=== PATIENT | male | born 1980 | race Caucasian/White ===

== ENCOUNTER 2016-12-12 15:29 | Inpatient (IN) | payer OTHER ==
[~2016-12-12] VITALS: Ht 175.3 cm; Wt 108.4 kg
[2016-12-12 15:41] VITALS: BP 139/108
--- NOTE | 2016-12-12 17:33 | NUR ---
DR. MASON AT BEDSIDE.
--- NOTE | 2016-12-12 17:33 | NUR ---
Dr. Mcdonald evaluating patient at bedside.
--- NOTE | 2016-12-12 17:35 | NUR ---
PATIENT PRESENTS TO ED WITH BACK PAIN X1 WEEK. DENIES TRAUMA, DENIES N/V/D; SKIN IS PINK/WARM/DRY; AAOX4 WITH EVEN AND STEADY GAIT; LUNGS CLEAR BL; HR EVEN AND REGULAR; PT DENIES ANY FEVER, CP, SOB, OR COUGH AT THIS TIME; PATIENT STATES PAIN OF 7/10 AT THIS TIME; VSS; PATIENT POSITIONED FOR COMFORT; HOB ELEVATED; BEDRAILS UP X2; BED DOWN. ER MD MADE AWARE OF PT STATUS.
[2016-12-12] MEDS ORDERED: MORPHINE SULFATE 4 MG/ML SYR IVP ONE ×2 (17:45→20:35)
[2016-12-12] MEDS ORDERED: NACL 0.9% 1,000 ML IV ONE (17:45)
[2016-12-12] MEDS ORDERED: LORazepam 2 MG/ML VIAL IVP ONE (17:45)
--- NOTE | 2016-12-12 17:56 | NUR ---
EKG completed at bedside by EMT.
--- NOTE | 2016-12-12 18:06 | NUR ---
technical inspector at bedside.
--- NOTE | 2016-12-12 18:45 | NUR ---
PT STABLE, DENIES ANY PAIN AT THIS MOMENT
[2016-12-12] MEDS ORDERED: cefTRIAXone 2,000 MG in DEXTROSE 5% 100 ML IV ONE (18:55)
[2016-12-12] MEDS ORDERED: VANCOMYCIN 1,000 MG in DEXTROSE 5% 250 ML IV ONE (18:55)
--- NOTE | 2016-12-12 19:15 | NUR ---
REPORT RECEIVED FROM ZOIE MCDONALD.
--- NOTE | 2016-12-12 19:15 | NUR ---
REPORT GIVEN TO ZOIE BE.
[2016-12-12] MEDS ORDERED: VANCOMYCIN 1,000 MG VIAL ONE (19:19)
[2016-12-12] MEDS ORDERED: cefTRIAXone 2,000 MG VIAL ONE (19:19)
[2016-12-12] MEDS ORDERED: NACL 0.9% 3,000 ML IV ONE (19:25)
--- NOTE | 2016-12-12 19:40 | NUR ---
PT TO CT VIA CHRISTIE IN STABLE CONDITION
[2016-12-12] MEDS ORDERED: ONDANSETRON 4 MG/2 ML VIAL IVP ONE (20:35)
[2016-12-12] MEDS ORDERED: ONDANSETRON 4 MG/2 ML VIAL IVP PRN (21:50)
[2016-12-12] MEDS ORDERED: ACETAMINOPHEN 325 MG TAB PO PRN (21:50)
[2016-12-12] MEDS ORDERED: LORazepam 2 MG/ML VIAL IVP PRN (21:50)
--- NOTE | 2016-12-12 22:01 | NUR ---
Note cara in EDM - 12/12/16 at 2205 by LASHONDA Patient discharged with v/s stable. Written and verbal after care instructions given and explained. Patient alert, oriented and verbalized understanding of instructions. Ambulatory with steady gait. All questions addressed prior to discharge. ID band removed. Patient advised to follow up with PMD. Rx of METRONIDDAZOLE 0.75% BID given. Patient educated on indication of medication including possible reaction and side effects. Opportunity to ask questions provided and answered.
--- NOTE | 2016-12-12 22:12 | NUR ---
NEW PIV STARTED. PT CATHY. WELL
--- NOTE | 2016-12-12 22:16 | NUR ---
MD AT BEDSIDE TALKING WITH PT REGARDING ADMIT
[2016-12-12 22:40] VITALS: BP 134/80
[2016-12-12] MEDS: LEVOFLOXACIN 750 MG/D5W PREMIX 150 ML IV SCH (22:40)
[2016-12-12] MEDS: NACL 0.9% 1,000 ML IV SCH (22:40)
--- NOTE | 2016-12-12 22:40 | NUR ---
PATIENT TRANSFERRED FROM ED VIA WHEELCHAIR. PATIENT ABLE TO AMBULATE FROM WHEELCHAIR TO BED WITH STEADY GAIT. NO RESPIRATORY DISTRESS, SOB, OR DISCOMFORT. PATIENT IS A 36-YEAR-OLD, MALE, DIAGNOSIS: PYELONEPHRITIS. INITIAL ASSESSMENT AND BODY CHECK DONE. PATIENT IS AOX4, SKIN IS INTACT, IV ACCESS TO RIGHT WRIST 20G, PATENT. PATIENT DENIES ANY PAIN AT THIS TIME. PATIENT HAS F/C IN PLACE DRAINING CLEAR, NANY. DISCUSSED PLAN OF CARE, MEDICATION REGIMENT, AND PAIN MANAGEMENT WITH PATIENT. PATIENT VERBALIZED UNDERSTANDING. PLACED PATIENT ON SAFETY PRECAUTIONS. CALL LIGHT LEFT WITHIN REACH, WILL CONTINUE TO MONITOR.
--- NOTE | 2016-12-12 22:41 | NUR ---
Patient will be admitted to care of DR FRAIRE. Admited to TELE. Will go to room 112B. Belongings list completed. Report to
[2016-12-12] MEDS ORDERED: INFLUENZA VIRUS VACCINE QUAD 0.5 ML SYR IMVAC PRN (23:55)
[2016-12-12] MEDS ORDERED: PNEUMOCOCCAL VACCINE 23 MCG/0.5 ML VIAL IMVAC PRN (23:55)
[2016-12-13] VITALS: BP 130/78
--- NOTE | 2016-12-13 00:52 | NUR ---
PATIENT IN BED, SLEEPING. NO RESPIRATORY DISTRESS, SOB, OR DISCOMFORT. CALL LIGHT LEFT WITHIN REACH, WILL CONTINUE TO MONITOR.
--- NOTE | 2016-12-13 03:13 | NUR ---
PATIENT ASLEEP. NO RESPIRATORY DISTRESS, SOB, OR DISCOMFORT. CALL LIGHT LEFT WITHIN REACH, WILL CONTINUE TO MONITOR.
--- NOTE | 2016-12-13 06:05 | NUR ---
PATIENT SLEEPING. NO RESPIRATORY DISTRESS, SOB, OR DISCOMFORT. CALL LIGHT LEFT WITHIN REACH, WILL CONTINUE TO MONITOR.
--- NOTE | 2016-12-13 07:21 | NUR ---
REPORT GIVEN TO DAY NURSELORAINE. PATIENT RESTING IN BED, STABLE. NO RESPIRATORY DISTRESS, SOB, OR DISCOMFORT. ALL NEEDS ATTENDED TO DURING SHIFT, CALL LIGHT LEFT WITHIN REACH.
--- NOTE | 2016-12-13 07:40 | NUR ---
RECEIVED REPORT FROM THE INSPECTOR AND MENDER NURSE VALERIE AT BEDSIDE. PATIENT IS AWAKE, ALERT, ORIENTEDX4. IV ON THE RIGHT WRIST, INTACT, AND PATENT. IV FLUID INFUSING WELL. INITIAL ASSESSMENT DONE. SKIN INTACT. PATIENT STATE "HE FEEL BETTER THAN YESTERDAY." ON ROOM AIR NO S/S OF SOB OR DISTRESS. VITAL TAKEN AND WITHIN THE NORMAL LIMIT. PATIENT DENIED ANY PAIN. SAFETY MEASURE CHECKED AND WILL CONTINUE TO MONITOR. CALL LIGHT WITHIN REACH
[2016-12-13] MEDS: NACL 0.9% 1,000 ML IV SCH (07:50)
[2016-12-13 07:51] VITALS: BP 109/69
[2016-12-13 08:00] VITALS: BP 109/69
[2016-12-13] MEDS: ENOXAPARIN 40 MG/0.4 ML SYR SUBQ SCH (09:16)
--- NOTE | 2016-12-13 09:22 | NUR ---
DUE MEDS GIVEN, PATIENT TOLERATED WELL. RESTING IN BED, NO S/S OF DISTRESS. WILL CONTINUE TO MONITOR. CALL LIGHT WITHIN REACH.
--- NOTE | 2016-12-13 10:00 | NUR ---
PATIENT RESTING IN BED NO S/S OF DISTRESS. GIVE THE PHONE TO PATIENT, TO TRANSFER CALL FROM MOTHER. CALL LIGHT WITHIN REACH.
--- NOTE | 2016-12-13 12:00 | NUR ---
PATIENT IS SLEEPING NO S/S OF DISTRESS. WILL CONTINUE TO MONITOR.
--- NOTE | 2016-12-13 14:42 | NUR ---
PATIENT IS AWAKE, DENIED ANY PAIN. NO S/S OF DISTRESS. WILL CONTINUE TO MONITOR. CALL LIGHT WITHIN REACH.
--- NOTE | 2016-12-13 15:50 | NUR ---
K-DUR GIVEN FOR LOW POTASSIUM OF 3.1. PATIENT TOLERATED WELL. WILL CONTINUE TO MONITOR.
[2016-12-13] MEDS ORDERED: LORazepam 2 MG/ML VIAL IVP PRN (15:55)
[2016-12-13] MEDS ORDERED: POTASSIUM CHLORIDE 10 MEQ TABER PO SCH (15:57)
[2016-12-13 16:00] VITALS: BP 118/71
--- NOTE | 2016-12-13 16:00 | NUR ---
VITAL TAKEN AND WITHIN NORMAL LIMIT. DENIED ANY PAIN, WILL CONTINUE TO MONITOR. CALL LIGHT WITHIN REACH.
--- NOTE | 2016-12-13 17:00 | NUR ---
DR. FRAIRE SEEN THE PATIENT AND ORDERS GIVEN.
[2016-12-13] MEDS ORDERED: COLCHICINE0.6 M2 PO (17:53)
[2016-12-13] MEDS ORDERED: AMANTADINE HCL100 M1 PO (17:53)
[2016-12-13] MEDS ORDERED: ALLOPURINOL300 M1 PO (17:53)
[2016-12-13] MEDS ORDERED: KEPPRA500 MG PO (17:53)
[2016-12-13] MEDS ORDERED: STOOL SOFTENER PO (17:53)
[2016-12-13] MEDS ORDERED: DONEPEZIL HCL5 MG PO (17:53)
[2016-12-13] MEDS ORDERED: PEPCID20 MG PO (17:53)
[2016-12-13] MEDS: MORPHINE SULFATE 2 MG/ML SYR IVP PRN (18:17)
--- NOTE | 2016-12-13 18:17 | NUR ---
PATIENT COMPLAINED OF BACK PAIN. PAIN MEDICATION WILL BE GIVEN. FAMILY AT BEDSIDE. CALL LIGHT WITHIN REACH.
--- NOTE | 2016-12-13 19:11 | NUR ---
REPORT GIVEN TO NAVAL GUNFIRE SPOTTER NURSE JULES AT BEDSIDE. PATIENT IS IN STABLE CONDITION AND ALL NEED MET AT THIS TIME.
--- NOTE | 2016-12-13 19:13 | NUR ---
PT IS CURRENTLY AWAKE ALERT ABLE TO UNDERSTAND AND MAKE NEEDS KNOWN.PATIENT SITTING IN BED SMILING AND WATCHING TV,IVF INFUSING WELL IV SITE PATENT,PT DENIES PAIN AT THIS TIME PT STATES,"MY PAIN IF FINE RIGHT NOW I GOT PAIN MEDICATION EARLIER." PATIENT HAS A MARIE CATHETER TO GRAVITY ORANGE COLOR URINE NOTED WILL CONTINUE TO MONITOR. FAMILY AT BEDSIDE WITH THE PATIENT.
[2016-12-13 20:00] VITALS: BP 123/86
--- NOTE | 2016-12-13 20:00 | NUR ---
Patient's Plan of Care was discussed and reviewed with DIAMOND FINISHING SUPERVISOR: JULES SUTTON
[2016-12-13] MEDS: MORPHINE SULFATE 4 MG/ML SYR IVP PRN (21:17)
--- NOTE | 2016-12-13 21:17 | NUR ---
PT SITTING UP IN BED PT COMPLAINS OF SEVERE PAIN TO LOWER BACK RADIATING TO RT LEG ZOIE MICHELLE INFORMED HE WILL MEDICATE THE PATIENT FOR PAIN.
[2016-12-13] MEDS: LEVOFLOXACIN 750 MG/D5W PREMIX 150 ML IV SCH (22:13)
--- NOTE | 2016-12-13 22:13 | NUR ---
PATIENT RECEIVED HIS LEVAQUIN ANTIBIOTIC ORDERED.
[2016-12-14] VITALS: BP 118/67
--- NOTE | 2016-12-14 00:20 | NUR ---
PT AWAKE WATCHING TV DENIES PAIN,REQUESTED FOR SOME ORANGE JUICE AND IT WAS GIVEN TO THE PATIENT NEEDS MET WILL CONTINUE TO MONITOR.
--- NOTE | 2016-12-14 02:40 | NUR ---
PT RESTING IN BED SLEEPING WILL CONTINUE TO MONITOR.
--- NOTE | 2016-12-14 04:23 | NUR ---
PT SLEEPING COMFORTABLY IN BED AT THIS TIME NO PAIN OR DISCOMFORT NOTED WILL CONTINUE TO MONITOR.
[2016-12-14] MEDS: MORPHINE SULFATE 4 MG/ML SYR IVP PRN (05:47)
--- NOTE | 2016-12-14 06:50 | NUR ---
PT STABLE RESTING IN BED WILL CONTINUE TO MONITOR.
--- NOTE | 2016-12-14 07:12 | NUR ---
ASSUMED CONTINUITY OF CARE. NO SIGNS AND SYMPTOMS OF ACUTE DISTRESS NOTED. INITIAL ASSESSMENT DONE. KEEP COMFORTABLE ON BED. EXPLAINED DIAGNOSIS, PLAN OF CARE, PAIN MANAGEMENT TEACHING, USE OF CALL LIGHT/BED/TV/BATHROOM. VERBALIZED UNDERSTANDING. CALL LIGHT WITHIN REACH.
--- NOTE | 2016-12-14 07:22 | NUR ---
PT STABLE RESTING IN BED REPORT ENDORSED TO BENJI GARG HE WILL RESUME CARE OF THE PATIENT.
[2016-12-14 08:00] VITALS: BP 122/76
--- NOTE | 2016-12-14 08:00 | NUR ---
Patient's Plan of Care was discussed and reviewed with MANAGER ZONE: SONIA
[2016-12-14] MEDS: ENOXAPARIN 40 MG/0.4 ML SYR SUBQ SCH (08:52)
--- NOTE | 2016-12-14 08:53 | NUR ---
PT. STEVAN AND DANNIE CAME FOR PT. TREATMENT. PT. TOLERATED WELL. NO C/O PAIN.
--- NOTE | 2016-12-14 10:03 | NUR ---
PATIENT HAS BEEN SCREENED AND CATEGORIZED LOW NUTRITION RISK. PATIENT WILL BE SEEN WITHIN 7 DAYS OF ADMISSION. 12/19/[address]
[2016-12-14 11:30] VITALS: BP 120/69
[2016-12-14] MEDS: MORPHINE SULFATE 2 MG/ML SYR IVP PRN (11:40)
--- NOTE | 2016-12-14 12:53 | NUR ---
SEEN WATCHING TV. NO DISCOMFORT NOTICED. CALL LIGHT WITHIN REACH.
[2016-12-14 16:00] VITALS: BP 129/96
--- NOTE | 2016-12-14 16:33 | NUR ---
CM NOTE REVIEW SENT TO [facility] FAX# [phone] PH# [phone]
--- NOTE | 2016-12-14 16:45 | NUR ---
EXPLAINED ABOUT DIAGNOSIS, MD D/C ORDER, D/C INSTRUCTIONS AND TEACHING, MD PRESCRIPTION LIST EDUCATION, MD FOLLOW-UP. VERBALIZED UNDERSTANDING.
[2016-12-14] MEDS ORDERED: LEVAQUIN750 MG PO (17:02)
--- NOTE | 2016-12-14 18:00 | NUR ---
D/C VIA WHEELCHAIR ACCOMPANIED BY PTManuel QUINONES. AWAKE, ALERT, AND ORIENTED X4. SPEECH CLEAR. NO C/O PAIN. NO SOB, NOTED. IN STABLE CONDITION. INFORMED CHARGE NURSE JASON HEALY
== END 2016-12-14 18:00 | disposition home or self-care (01) | DRG 463 ==
LOC: MED 15:29 → MTU 21:55
PROVIDERS: ADMIT Hospitalist; ATTEND Hospitalist
DX: N12 Tubulo-interstitial nephritis, not specified as acute or chronic (principal); F10.10 Alcohol abuse, uncomplicated; M54.9 Dorsalgia, unspecified; N39.0 Urinary tract infection, site not specified; M47.896 Other spondylosis, lumbar region; Y90.9 Presence of alcohol in blood, level not specified; M79.604 Pain in right leg; Z86.73 Personal history of transient ischemic attack (TIA), and cerebral infarction without residual deficits

== ENCOUNTER 2017-08-17 02:40 | Emergency (ER) | payer OTHER ==
[~2017-08-17] VITALS: Ht 172.7 cm; Wt 99.8 kg
[~2017-08-17 02:40] MED LIST: ALLO300T28 PO; AMAN100S37 PO; COLC0.6C PO; DOCU-299 PO; DOCU-463 PO; DONE5TAB PO; DONE5TAB6 PO; FAMO-90 PO; KEP500 PO; LEVO750T2 PO; ZYL300 PO
[2017-08-17 02:44] VITALS: BP 141/96
--- NOTE | 2017-08-17 02:50 | NUR ---
VISION ACUITY RT EYE 20/30 LEFT EYE 0
--- NOTE | 2017-08-17 02:52 | NUR ---
PT AMBULATED TO ER BED 07
[2017-08-17] MEDS ORDERED: TETRACAINE HCL/PF 0.5% OPTH 4 ML BTL OP ONE (03:00)
[2017-08-17] MEDS ORDERED: FLUORESCEIN OPTH STRIP 1 MG OP ONE (03:00)
--- NOTE | 2017-08-17 03:00 | NUR ---
PATIENT PRESENTS TO ED WITH C/O LEFT EYE PAIN . PT DENIES N/V/D; SKIN IS PINK/WARM/DRY; AAOX4 WITH EVEN AND STEADY GAIT; LUNGS CLEAR BL; HR EVEN AND REGULAR; PT DENIES ANY FEVER, CP, SOB, OR COUGH AT THIS TIME; PATIENT STATES PAIN OF 10/10 AT THIS TIME; VSS; PATIENT POSITIONED FOR COMFORT; HOB ELEVATED; BEDRAILS UP X2; BED DOWN. ER MD MADE AWARE OF PT STATUS.
--- NOTE | 2017-08-17 03:00 | NUR ---
ER AT BEDSIDE
[2017-08-17] MEDS ORDERED: TETRACAINE HCL/PF 0.5% OPTH 4 ML BTL ONE (03:11)
[2017-08-17] MEDS ORDERED: LORazepam 2 MG/ML VIAL IM ONE (04:15)
--- NOTE | 2017-08-17 06:05 | NUR ---
Patient discharged with v/s stable. Written and verbal after care instructions given and explained. Patient alert, oriented and verbalized understanding of instructions. Ambulatory with steady gait. All questions addressed prior to discharge. ID band removed. Patient advised to follow up with PMD. Rx of SULFACETAMIDE SODIUM SOLUTION AND ACULAR LS SOLUTION given. Patient educated on indication of medication including possible reaction and side effects. Opportunity to ask questions provided and answered.
[2017-08-17 06:06] VITALS: BP 138/91
== END 2017-08-17 06:07 | disposition home or self-care (01) ==
LOC: MED 02:40
DX: S05.02XA Injury of conjunctiva and corneal abrasion without foreign body, left eye, initial encounter (principal); G40.909 Epilepsy, unspecified, not intractable, without status epilepticus; F41.9 Anxiety disorder, unspecified; Z88.0 Allergy status to penicillin; Z86.73 Personal history of transient ischemic attack (TIA), and cerebral infarction without residual deficits; X58.XXXA Exposure to other specified factors, initial encounter; Y93.89 Activity, other specified; Y92.89 Other specified places as the place of occurrence of the external cause; Y99.8 Other external cause status
CPT/HCPCS: 93005; 96372; 99283; J2060

== ENCOUNTER 2019-06-08 13:57 | Emergency (ER) | payer OTHER ==
[~2019-06-08] VITALS: Ht 175.3 cm; Wt 117.9 kg
[~2019-06-08 13:57] MED LIST changes: -DONE5TAB PO; +DONE5TAB34 PO
[2019-06-08 14:08] VITALS: BP 121/74
--- NOTE | 2019-06-08 14:15 | NUR ---
PT PRESENTED TO ED, C/O RIGHT HAND PAIN AND CRAMPING, STATED "I HOPE IM NOT GOING TO HAVE A SEIZURE". PT IS UNALBE TO MOVE RT HAND AT THIS TIME D/T CRAMPS. PT REPORTS HX OF SEIZURES, ON . HE ALSO MENTIONED BEEN DRINKING "ALOT" SINCE WEDNESDAY. PT NOTED SMELLS OF ALCOHOL. AAOX4, RR EVEN UNLABORED, DENIES CP/N/V/D, SEIZURE PRECAUTIONS INPLACE. BED IN LOWEST POSITION. WILL CONTINUE TO MONITOR CLOSELY, ED MD DR. SMITH MADE AWARE.
[2019-06-08] MEDS ORDERED: NACL 0.9% 1,000 ML IV ONE (14:30)
--- NOTE | 2019-06-08 15:15 | NUR ---
PT SLEEPING , EASILY AROUSABLE TO VERBAL STIMULI, NO LONGER C/O HAND CRAMPING OR PAIN , PT HAS FULL ROM TO RT HAND AND ARM.
--- NOTE | 2019-06-08 16:49 | NUR ---
pt in bed resting comfortably, vss.
--- NOTE | 2019-06-08 18:14 | NUR ---
dr mcginnis at bedside evaluating pt.
[2019-06-08] MEDS ORDERED: KETOROLAC 30 MG/ML VIAL IVP ONE (18:20)
[2019-06-08 19:10] VITALS: BP 110/69
--- NOTE | 2019-06-08 19:10 | NUR ---
Patient discharged with v/s stable. Written and verbal after care instructions given and explained. Patient alert, oriented and verbalized understanding of instructions. Ambulatory with steady gait. All questions addressed prior to discharge. ID band removed. Patient advised to follow up with PMD. Rx of LIBRIUM 25 MG AND MOTRIN 800MG given. Patient educated on indication of medication including possible reaction and side effects. Opportunity to ask questions provided and answered.
== END 2019-06-08 19:10 | disposition home or self-care (01) ==
LOC: MED 13:57
DX: F10.239 Alcohol dependence with withdrawal, unspecified (principal); R51 Headache; Z86.73 Personal history of transient ischemic attack (TIA), and cerebral infarction without residual deficits; Z98.890 Other specified postprocedural states; Z88.0 Allergy status to penicillin; Z79.899 Other long term (current) drug therapy
CPT/HCPCS: 96374; 99283; J1885; J7030

== ENCOUNTER 2019-06-27 08:03 | Observation (INO) | payer OTHER ==
[~2019-06-27] VITALS: Ht 177.8 cm; Wt 120.7 kg
--- NOTE | 2019-06-27 08:03 | NUR ---
PATIENT BIBA TO BED 8.
[2019-06-27 08:08] VITALS: BP 112/73
--- NOTE | 2019-06-27 08:08 | NUR ---
GIFTY PER EMS, FRIEND CALLED 911 FOR SEIZURE, WHEN EMS ON THE SCENE PT WAS HYPERVENILATING WITH BILATERAL HAND CRAMPING. AIRPLANE FLIGHT ATTENDANT SUPERVISOR GAVE 10L NONREBREATHER IN THE FIELD. EMS FOUND PT SITTING UP. PT NON VERBAL, FOLLOWS COMMADS. GCS 8. O2 100% AT THIS TIME RA. SMELL ETOH ON BREATH. PERRLA. RESPIRATORY RATE 20 DEEP RESPIRATIONS SYMMETRICAL. VSS. ERMD AT BEDSIDE AT THIS TIME. BS 96. RX: UNKNOWN MEDHX: SEIZURES
--- NOTE | 2019-06-27 08:28 | NUR ---
EMT DOING EKG AT THIS TIME.
--- NOTE | 2019-06-27 08:36 | NUR ---
PT GOES TO RADIOLOGY AT THIS TIME.
[2019-06-27 09:06] LABS: BASOPHILS % (AUTO) 0.5 % (0.0-2.0); EOSINOPHILS # (AUTO) 0.2 K/uL (0-0.4); EOSINOPHILS % (AUTO) 5.3 % (0.0-4.0); HEMATOCRIT 42.8 % (36-52); HEMOGLOBIN 14.7 g/dL (12.0-18.0); LYMPHOCYTES # (AUTO) 1.6 K/uL (2.0-11.5); LYMPHOCYTES % (AUTO) 34.8 % (20.5-51.1); MEAN CORPUSCULAR HEMOGLOBIN 33 pg (27-31); MEAN CORPUSCULAR HGB CONC 34 g/dL (33-37); MEAN CORPUSCULAR VOLUME 96.2 fL (80-94); MONOCYTES # (AUTO) 0.5 K/uL (0.8-1.0); MONOCYTES % (AUTO) 10.3 % (1.7-9.3); NEUTROPHILS # (AUTO) 2.3 K/uL (1.8-7.7); NEUTROPHILS % (AUTO) 49.1 % (42.2-75.2); PLATELET COUNT (AUTO) 127 K/uL (140-450); RED BLOOD CELL COUNT(AUTO) 4.45 MIL/uL (4.20-6.10); RED CELL DISTRIBUTION WIDTH 14.9 % (11.6-13.7); WHITE BLOOD COUNT (AUTO) 4.6 K/uL (4.8-10.8)
--- NOTE | 2019-06-27 09:15 | NUR ---
# 14 FR Urinary catheter inserted utilizing sterile technique. Immediate return of CLEAR, YELLOW ml 340 urine noted. Urine sample collected and sent to lab. Pt tolerated procedure WELL.
[2019-06-27 09:22] LABS: CHLORIDE 104 mmol/L (98-107); SODIUM SERUM 142 mmol/L (136-145)
--- NOTE | 2019-06-27 09:35 | NUR ---
URINE SAMPLE WALKED DOWN TO LAB AT THIS TIME, HANDED TO ORAL AND MAXILLOFACIAL SURGERY
[2019-06-27 09:39] LABS: ANION GAP 20.6 (8-16); POTASSIUM 3.6 mmol/L (3.5-5.1)
[2019-06-27 09:40] LABS: ASPARTATE AMINOTRANSFERASE 120 U/L (15-37); CREATININE 0.8 mg/dL (0.7-1.3); GFR ARICAN-AMERICAN 138 mL/min (>90); GLUCOSE 99 mg/dL (74-106); TOTAL BILIRUBIN 0.6 mg/dL (0.0-1.0); UREA NITROGEN, BLOOD 7 mg/dL (7-18)
[2019-06-27 09:41] LABS: ACETAMINOPHEN < 0.5 ug/ml (10-30); SALICYLATE < 2.8 mg/dL (2.8-20.0)
[2019-06-27 09:43] LABS: BILIRUBIN,URINE NEGATIVE (NEGATIVE); BLOOD, URINE TRACE-I (NEGATIVE); COLOR,URINE YELLOW (YELLOW); LEUKOCYTE ESTERASE ,URINE NEGATIVE (NEGATIVE); NITRITE, URINE NEGATIVE (NEGATIVE); UGLUCOSE NEGATIVE (NEGATIVE)
[2019-06-27 09:44] LABS: CKMB RELATIVE INDEX 0.3 (0.0-2.5); CREATINE KINASE MB 2.2 ng/mL (0-3.6)
[2019-06-27 09:51] LABS: APPEARANCE,URINE HAZY (CLEAR)
[2019-06-27 09:53] LABS: RBC,URINE 0-5 /HPF (0-5); WBC,URINE 0-5 /HPF (0-5)
[2019-06-27 10:00] LABS: BARBITURATE, URINE NEGATIVE ng/ml (NEG <=200); BENZODIAZEPINE, URINE NEGATIVE ng/mL (NEG <=200); CANNABINOID, URINE NEGATIVE ng/mL (NEG <=50); COCAINE, URINE NEGATIVE ng/mL (NEG <=300); OPIATE, URINE NEGATIVE ng/mL (NEG <=2000); PHENCYCLIDINE SCREEN,URINE NEGATIVE ng/mL (NEG <=25)
--- NOTE | 2019-06-27 10:51 | NUR ---
PT WAS ASLEEP UPON ENTRY. AO X4. AROUSABLE TO NAME. COOPERATIVE, CALM, FRIENDLY. PT STATES HE IS NOT HOMELESS LIVES WITH MOTHER IN [place]. STATED HE HAD A HEADACHE 05/17. PT DENIES DRINKING TODAY. STATES HE DRANK TOO MUCH LAST NIGHT. VSS. NO SOB. WAITING TO BE ADMITTED
[2019-06-27 11:45] VITALS: BP 135/87
[2019-06-27] MEDS ORDERED: LORazepam 2 MG/ML VIAL IVP PRN (11:45)
--- NOTE | 2019-06-27 11:45 | NUR ---
RECEIVED REPORT FROM ED NURSES BERNICE AND MELA. PT AAOX4, COOPERATIVE AND CALM. NO C/O PAIN AT THIS TIME. NOTICEABLE SHAKING TO BILATERAL HANDS, DX ENCEPALOPATHY AND ETOH ABUSE. RESPIRATIONS EVEN AND UNLABORED ON RA, NO SOB NOTED, O2 SAT 99%. ABDOMEN SOFT, LBM 06/26/19. PT ON BAND RIPSAW OPERATOR, NSR. IV ON RT AC 20 GA ON SALINE LOCK, FLUSHING WITH NO RESISTANCE. REVIEWED POC WITH PT, PT VERBALIZED UNDERSTANDING.
--- NOTE | 2019-06-27 11:50 | NUR ---
Patient will be admitted to care of GROBLER. Admited to TELEMETRY. Will go to room 106A VIA RNEY. TAKEN BY BERNICE LINO AND MELA LINO. Belongings list completed. Report to ALBERT LINO. VSS
[2019-06-27] MEDS: DEXT 5% / NACL 0.45% 1,000 ML IV SCH (12:49)
--- NOTE | 2019-06-27 12:59 | NUR ---
GIVEN SBAR REPORT TO ZOIE SCHMIDT. PT HAS NO SIGNS OF DISTRESS.
--- NOTE | 2019-06-27 14:00 | NUR ---
PT ASLEEP IN BED, RESPIRATIONS EVEN AND UNLABORED ON RA.
[2019-06-27 16:00] VITALS: BP 134/76
[2019-06-27] MEDS ORDERED: levETIRAcetam 1,000 MG in NACL 0.9% 100 ML IV SCH (16:00)
--- NOTE | 2019-06-27 16:16 | NUR ---
STARTED KEPPRA PER ORDER, PT IS AWARE AND VERBALIZES UNDERSTANDING OF INDICATION AND SIDE EFFECTS OF MEDICATION.
--- NOTE | 2019-06-27 17:00 | NUR ---
PT PROVIDED BRYAN/MOTHER'S PHONE NUMBER [phone]. MOTHER IS AWARE THAT SON IS IN THE HOSPITAL.
[2019-06-27] MEDS ORDERED: KETOROLAC 30 MG/ML VIAL IVP PRN (17:25)
[2019-06-27] MEDS ORDERED: KETOROLAC 30 MG/ML VIAL IVP SCH (18:00)
--- NOTE | 2019-06-27 19:10 | NUR ---
ENDORSED PT TO RE EXAMINER NURSE. NO SIGNS OF DISTRESS AT THIS TIME.
--- NOTE | 2019-06-27 19:35 | NUR ---
RECEIVED PATIENT REPORT AT BEDSIDE. PATIENT IS AWAKE, ALERT AND ORIENTED. PT ON ROOM AIR. NO SOB OR S/S OF DISTRESS NOTED. BED LOWERED WITH CALL LIGHT WITHIN REACH. WILL CONTINUE TO MONITOR
[2019-06-27 20:00] VITALS: BP 138/85
[2019-06-27] MEDS: levETIRAcetam 1,000 MG in NACL 0.9% 100 ML IV SCH (21:08)
[2019-06-27] MEDS ORDERED: LORazepam 2 MG/ML VIAL ONE (21:09)
[2019-06-28 00:17] VITALS: BP 135/77
--- NOTE | 2019-06-28 00:27 | NUR ---
PATIENT ASLEEP IN BED AT THIS TIME. NO S/S OF DISTRESS NOTED
[2019-06-28] MEDS: DEXT 5% / NACL 0.45% 1,000 ML IV SCH ×2 (02:02→04:16)
[2019-06-28 04:00] VITALS: BP 135/82
--- NOTE | 2019-06-28 07:32 | NUR ---
PT REPORT GIVEN AT BEDSIDE. PATIENT ENDORSED IN STABLE CONDITION
--- NOTE | 2019-06-28 07:35 | NUR ---
RECEIVED PT FROM ZINC PLATE GRAINER NURSEVALERIE, PT IS AWAKE AND LYING ON THE BED, ANIMAL CARE ASSISTANT RAILS ARE UP, PADDED AND CALL LIGHT WITHIN REACH, IV LINE ON THE RT AC G. 20 WITH IVF D51/2NS INFUSING AT 70ML/HR, PT DENIES PAIN AND NO SIGN OF DISTRESS NOTED. WILL MONITOR PT.
[2019-06-28 07:47] LABS: ANION GAP 12.7 (8-16); CARBON DIOXIDE 27.1 mmol/L (21-32); CREATININE 0.8 mg/dL (0.7-1.3); POTASSIUM 3.8 mmol/L (3.5-5.1)
[2019-06-28 07:53] LABS: BASOPHILS % (AUTO) 0.7 % (0.0-2.0); EOSINOPHILS # (AUTO) 0.4 K/uL (0-0.4); EOSINOPHILS % (AUTO) 8.6 % (0.0-4.0); HEMATOCRIT 41.4 % (36-52); HEMOGLOBIN 14.1 g/dL (12.0-18.0); LYMPHOCYTES # (AUTO) 1.2 K/uL (2.0-11.5); LYMPHOCYTES % (AUTO) 24.1 % (20.5-51.1); MEAN CORPUSCULAR HEMOGLOBIN 33 pg (27-31); MEAN CORPUSCULAR HGB CONC 34 g/dL (33-37); MONOCYTES # (AUTO) 0.6 K/uL (0.8-1.0); MONOCYTES % (AUTO) 11.5 % (1.7-9.3); NEUTROPHILS # (AUTO) 2.8 K/uL (1.8-7.7); NEUTROPHILS % (AUTO) 55.1 % (42.2-75.2); PLATELET COUNT (AUTO) 99 K/uL (140-450); RED BLOOD CELL COUNT(AUTO) 4.23 MIL/uL (4.20-6.10); RED CELL DISTRIBUTION WIDTH 15.1 % (11.6-13.7); WHITE BLOOD COUNT (AUTO) 5.2 K/uL (4.8-10.8)
[2019-06-28 08:00] VITALS: BP 131/81
--- NOTE | 2019-06-28 08:03 | NUR ---
PATIENT HAS BEEN SCREENED AND CATEGORIZED LOW NUTRITION RISK. PATIENT WILL BE SEEN WITHIN 7 DAYS OF ADMISSION. 07/03/[address]
[2019-06-28 08:47] LABS: ALBUMIN 3.3 g/dL (3.4-5.0); TOTAL BILIRUBIN 1.1 mg/dL (0.0-1.0)
[2019-06-28] MEDS: levETIRAcetam 1,000 MG in NACL 0.9% 100 ML IV SCH ×2 (08:53→20:17)
--- NOTE | 2019-06-28 08:53 | NUR ---
PT IS AWAKE AND IV MEDICATION WAS GIVEN, LOVENOX WAS HELD, PLATELET IS LOW. WILL MONITOR PT.
[2019-06-28] MEDS ORDERED: ENOXAPARIN 40 MG/0.4 ML SYR SUBQ SCH (09:00)
--- NOTE | 2019-06-28 10:33 | NUR ---
CONTACTED PATIENT'S PCP OFFICE DR. GIBBONS ([facility]) REGARDING POST DISCHARGE APPOINTMENT, ABLE TO SPEAK WITH JOE. SHE STATED THAT THE PATIENT HS A SCHEDULED APPOINT FOR Jun AT 1040 AM. COPY OF APPOINTMENT PROVIDED TO THE PATIENT.
--- NOTE | 2019-06-28 10:41 | NUR ---
PT IS AWAKE AND IS WATCHING TV NOW, NO SIGN OF DISTRESS NOTED. WILL MONITOR PT.
--- NOTE | 2019-06-28 11:09 | NUR ---
CALLED PT PCP DR CALLES OFFICE [phone] AND MADE F/U APPOINTMENT FOR JULY 03 AT 1040 AM THE ADDRESS [address] [facility] [id number]. NOTIFIED PT AND RASHAD REMINDER GIVEN ,PT VERBALIZED UNDERSTANDING.
[2019-06-28 12:00] VITALS: BP 132/75
[2019-06-28 16:00] VITALS: BP 130/72
--- NOTE | 2019-06-28 16:40 | NUR ---
PT IS AWAKE AND V/S TAKEN AND IS STABLE, PT DENIES PAIN. WILL MONITOR PT.
--- NOTE | 2019-06-28 19:00 | NUR ---
WOUND ASSESSMENT DONE AND PICTURE WAS TAKEN AND ATTACHED TO CHART.
--- NOTE | 2019-06-28 19:30 | NUR ---
ENDORSED PT TO MANUFACTURING ADVISOR NURSE FOR CONTINUATION OF DISCHARGE PROCESS.
--- NOTE | 2019-06-28 19:35 | NUR ---
RECEIVED PT. FROM AM RN IN BED SITTING UP WAITING FOR BROTHER TO PICK HIM UP . PT. FOR DISCHARGE. NO COMPLAINTS DONE. ON THE PHONE AT THIS TIME TALKING TO HIS MOTHER. CALL LIGHT WITH IN REACH. PER AM RN NO NOTED SEIZURES ON HER SHIFT.
--- NOTE | 2019-06-28 21:36 | NUR ---
TALKED WITH MOTHER ON THE PHONE AND SHE SAID SHE IS COMING TO PICK HIM UP. ALL DISCHARGE PAPER WORKS DONE AND SIGNED . DISCHARGE INSTRUCTIONS EXPLAINED TO PT. PER MD ORDER. "I UNDERSTAND" ALL BELONGINGS WITH PT. AND ACCOUNTED FOR. IVF SITE DISCONTINUED WITH TIP INTACT AND COVERED WITH BAND AID.
--- NOTE | 2019-06-28 21:43 | NUR ---
PT. WHEELED TO THE FRONT BY WORKERS COMPENSATION CLAIMS ANALYST TO MEET MOTHER IN LOBBY. NO COMPLAINTS DONE.
[2019-07-01 10:13] LABS: CK-BB 0 % (0); CK-MB 0 % (0-3); CK-MM 100 % (97-100)
== END 2019-06-28 21:45 | disposition home or self-care (01) ==
LOC: MED 08:03 → MTU 11:23 → UNDOADMIN 11:23 → MTU 11:47
PROVIDERS: ADMIT Internal Medicine; ATTEND Internal Medicine
DX: F10.229 Alcohol dependence with intoxication, unspecified (principal); G40.909 Epilepsy, unspecified, not intractable, without status epilepticus; Z86.73 Personal history of transient ischemic attack (TIA), and cerebral infarction without residual deficits; M10.9 Gout, unspecified; R41.82 Altered mental status, unspecified
CPT/HCPCS: 36415; 70450; 71045; 80053; 80305; 81001; 82140; 82550; 82552; 82553; 84484; 85025; 87081; 87086; 93005; 96361; 96365; 96366; 96375; 99291; G0378; G0480; G0482; J1885; J1953; J2060; J7042; Q0092

== ENCOUNTER 2019-08-17 15:05 | Emergency (ER) | payer OTHER ==
[~2019-08-17] VITALS: Ht 162.6 cm; Wt 120.7 kg
[~2019-08-17 15:05] MED LIST changes: -ALLO300T28 PO; -DOCU-463 PO; -DONE5TAB34 PO; -LEVO750T2 PO
[2019-08-17 15:15] VITALS: BP 117/74
[2019-08-17] MEDS ORDERED: NACL 0.9% 1,000 ML IV ONE (15:25)
[2019-08-17] MEDS ORDERED: LORazepam 2 MG/ML VIAL IVP ONE (15:25)
--- NOTE | 2019-08-17 15:25 | NUR ---
GIFTY C/O FOUND PT AT A RESTAUR[facility] WITH DEEPLY BREATH, RR 25, VITALS ARE STABLE ON AMBULANCE. PT STATES HE HAD ONE EPISODE OF SEIZURE AND HAS A SEVERE HEADACHE. PT IS A&OX3 AND NOT ABLE TO RECALL PMH, TAKEN MEDICATIONS, OR ALLERGY INFO. PATIENT STATES PAIN OF 9/10 AT THIS TIME; VSS; PATIENT POSITIONED FOR COMFORT; HOB ELEVATED; BEDRAILS UP X2; BED DOWN. ER MD MADE AWARE OF PT STATUS. SEIZURE PADS PLACED ON BEDSIDES. PT IS ON MONITOR.
[2019-08-17 15:45] LABS: BASOPHILS % (AUTO) 0.6 % (0.0-2.0); EOSINOPHILS # (AUTO) 0.1 K/uL (0-0.4); EOSINOPHILS % (AUTO) 1.5 % (0.0-4.0); HEMATOCRIT 40.8 % (36-52); HEMOGLOBIN 13.9 g/dL (12.0-18.0); LYMPHOCYTES # (AUTO) 1.2 K/uL (2.0-11.5); LYMPHOCYTES % (AUTO) 22.4 % (20.5-51.1); MEAN CORPUSCULAR HEMOGLOBIN 34 pg (27-31); MEAN CORPUSCULAR HGB CONC 34 g/dL (33-37); MEAN CORPUSCULAR VOLUME 98.6 fL (80-94); MONOCYTES # (AUTO) 0.6 K/uL (0.8-1.0); MONOCYTES % (AUTO) 10.9 % (1.7-9.3); NEUTROPHILS # (AUTO) 3.5 K/uL (1.8-7.7); NEUTROPHILS % (AUTO) 64.6 % (42.2-75.2); PLATELET COUNT (AUTO) 133 K/uL (140-450); RED BLOOD CELL COUNT(AUTO) 4.13 MIL/uL (4.20-6.10); RED CELL DISTRIBUTION WIDTH 14.9 % (11.6-13.7); WHITE BLOOD COUNT (AUTO) 5.5 K/uL (4.8-10.8)
[2019-08-17 16:06] LABS: ANION GAP 23.1 (8-16); CHLORIDE 97 mmol/L (98-107); CREATININE 0.8 mg/dL (0.7-1.3); GFR ARICAN-AMERICAN 138 mL/min (>90); GLUCOSE 151 mg/dL (74-106); POTASSIUM 3.1 mmol/L (3.5-5.1); SODIUM SERUM 136 mmol/L (136-145); UREA NITROGEN, BLOOD 5 mg/dL (7-18)
[2019-08-17 16:12] LABS: ALBUMIN 3.5 g/dL (3.4-5.0); ASPARTATE AMINOTRANSFERASE 218 U/L (15-37)
[2019-08-17 16:13] LABS: ACETAMINOPHEN < 0.5 ug/ml (10-30); SALICYLATE < 2.8 mg/dL (2.8-20.0)
--- NOTE | 2019-08-17 16:15 | NUR ---
URINE SAMPLE OBTAINED VIA STRAIGHT CATHETER. URINE OUT PUT 650ML. PT TOLERATED WELL.
--- NOTE | 2019-08-17 16:58 | NUR ---
PT IS SLEEPING IN BED WITH VSS.
[2019-08-17 17:26] LABS: BARBITURATE, URINE NEG. ng/ml (NEG <=200); BENZODIAZEPINE, URINE NEG. ng/mL (NEG <=200); CANNABINOID, URINE NEG. ng/mL (NEG <=50); COCAINE, URINE NEG. ng/mL (NEG <=300); OPIATE, URINE NEG. ng/mL (NEG <=2000); PHENCYCLIDINE SCREEN,URINE NEG. ng/mL (NEG <=25)
--- NOTE | 2019-08-17 17:56 | NUR ---
PT IS SLEEPING IN BED WITH VSS.
--- NOTE | 2019-08-17 19:06 | NUR ---
PT IS SLEEPING IN BED WITH VSS.
--- NOTE | 2019-08-17 19:18 | NUR ---
Pt report given to ZOIE Chino. Transfer of care at this time.
--- NOTE | 2019-08-17 19:21 | NUR ---
RECEIVED REPORT FROM WILFRID LINO. PT STABLE AT THIS TIME.
--- NOTE | 2019-08-17 19:47 | NUR ---
CALLED PT'S MOTHER BRYAN, NOTIFIED HER THAT PT IS ASKED TO CALL HER TO SEE IF SHE CAN PICK PT UP AND BRING HER HOME. SHE STATED THAT SHE CANNOT AT THIS TIME, BUT WILL CALL BACK.
[2019-08-17 20:05] VITALS: BP 138/73
--- NOTE | 2019-08-17 20:05 | NUR ---
Patient discharged with v/s stable. Written and verbal after care instructions given and explained. Patient verbalized understanding. AOx4, Ambulatory with steady gait. All questions addressed prior to discharge. Advised to follow up with PMD.
--- NOTE | 2019-08-17 20:06 | NUR ---
PT'S MOTHER HAS NOT CALLED BACK AND IS NOW NOT ANSWERING PHONE CALLS. DISCUSSED TO PT THAT WE CAN CALL [employer] FOR PT TO BRING HIM HOME BUT HE HAS TO PAY AT HOME. PT AGREED. PT WAITING IN THE LOBBY FOR [employer] AT THIS TIME.
== END 2019-08-17 20:05 | disposition home or self-care (01) ==
LOC: MED 15:05
DX: R06.4 Hyperventilation (principal); Z86.73 Personal history of transient ischemic attack (TIA), and cerebral infarction without residual deficits; Z86.69 Personal history of other diseases of the nervous system and sense organs; Z79.899 Other long term (current) drug therapy; Z98.890 Other specified postprocedural states; Z88.0 Allergy status to penicillin
CPT/HCPCS: 36415; 80053; 80305; 85025; 93005; 96374; 99284; C1758; G0480; G0482; J2060; J7030

== ENCOUNTER 2019-09-15 06:07 | Emergency (ER) | payer OTHER ==
[~2019-09-15] VITALS: Ht 175.3 cm; Wt 99.8 kg
[2019-09-15 06:07] VITALS: BP 154/92
--- NOTE | 2019-09-15 06:07 | NUR ---
EMS TRANSFERRED PT TO BED 09 FROM [facility].
--- NOTE | 2019-09-15 06:27 | NUR ---
39M BIBA C/O ANXIETY. PT STATES "MY BOTH MY HAND IS CRAMPING UP." AOX3, FOLLOWING COMMANDS, SLURRED SPEECH. PT UNABLE TO SPEAK IN CLEAR AND COMPLETE SENTENCES. PT APPEARS ANXIOUS. PT REPORTS DRINKING APPROXIMATELY 18-24 BEERS PT DRANK YESTERDAY. PT TACHYCARDIC, HR 114 WITH REGULAR RATE AND RHYTHM. SEIZURE PADS IN PLACE. PT ATTACHED TO FULL MONITORING SYSTEM. WILL CONTINUE TO MONITOR.
[2019-09-15] MEDS ORDERED: LORazepam 2 MG/ML VIAL IM ONE (06:30)
--- NOTE | 2019-09-15 07:13 | NUR ---
REPORT GIVEN TO ZOIE GRIFFITH. TRANSFER OF CARE AT THIS TIME
[2019-09-15 07:33] LABS: BASOPHILS # (AUTO) 0.1 K/uL (0.00-0.22); EOSINOPHILS # (AUTO) 0.1 K/uL (0-0.4); HEMOGLOBIN 15.8 g/dL (12.0-18.0); LYMPHOCYTES % (AUTO) 17.5 % (20.5-51.1); MEAN CORPUSCULAR HEMOGLOBIN 33 pg (27-31); MEAN CORPUSCULAR HGB CONC 34 g/dL (33-37); MEAN CORPUSCULAR VOLUME 96.3 fL (80-94); MONOCYTES # (AUTO) 0.5 K/uL (0.8-1.0); MONOCYTES % (AUTO) 9.6 % (1.7-9.3); NEUTROPHILS # (AUTO) 4.1 K/uL (1.8-7.7); NEUTROPHILS % (AUTO) 70.9 % (42.2-75.2); PLATELET COUNT (AUTO) 148 K/uL (140-450); RED BLOOD CELL COUNT(AUTO) 4.78 MIL/uL (4.20-6.10); RED CELL DISTRIBUTION WIDTH 14.3 % (11.6-13.7); WHITE BLOOD COUNT (AUTO) 5.7 K/uL (4.8-10.8)
[2019-09-15 07:45] LABS: ANION GAP 19.3 (8-16); CARBON DIOXIDE 21.6 mmol/L (21-32); CREATININE 0.7 mg/dL (0.7-1.3); POTASSIUM 3.9 mmol/L (3.5-5.1)
[2019-09-15 07:50] LABS: ALBUMIN 3.9 g/dL (3.4-5.0); TOTAL BILIRUBIN 1.2 mg/dL (0.0-1.0)
[2019-09-15] MEDS ORDERED: NACL 0.9% 1,000 ML IV ONE (08:00)
--- NOTE | 2019-09-15 09:11 | NUR ---
Pt awake, alert x4. Pt expresses feeling better. Pt offered breakfast and pt only requesting juice. Pt provided with apple juice, tolerating fluids well. Pt advised he would be discharged soon and pt states he will call his sister to pick him up. Pt given a portable phone to call her. Pt sat up to a position of comfort.
[2019-09-15 09:44] VITALS: BP 149/86
--- NOTE | 2019-09-15 09:44 | NUR ---
Patient discharged. HR 116, DR DENG MADE AWARE. PT STATES HE WILL WALK TO FAMILY HOUSE. STATES WALK IS 10 MIN. PT DRESSED APPROPRIATELY FOR WALK. Written and verbal after care instructions given and explained REGARDING ALCOHOL AND THE EFFECT IT HAS ON THE LIVER. PT GIVEN PACKET ON ALCOHOL ABUSE AND PROGRAMS. Patient verbalized understanding. Ambulatory with steady gait. All questions addressed prior to discharge.
== END 2019-09-15 09:44 | disposition home or self-care (01) ==
LOC: MED 06:07
DX: R29.0 Tetany (principal); F41.9 Anxiety disorder, unspecified; Z86.73 Personal history of transient ischemic attack (TIA), and cerebral infarction without residual deficits; Z98.890 Other specified postprocedural states; Z79.899 Other long term (current) drug therapy; Z88.0 Allergy status to penicillin
CPT/HCPCS: 36415; 80053; 85025; 96372; 99283; G0482; J2060; J7030

== ENCOUNTER 2019-10-18 09:54 | Emergency (ER) | payer OTHER ==
[~2019-10-18] VITALS: Ht 177.8 cm; Wt 117.9 kg
--- NOTE | 2019-10-18 09:54 | NUR ---
PATIENT WHEELCHAIR ASSISTED TO BED 11.
[2019-10-18 09:57] VITALS: BP 136/82
--- NOTE | 2019-10-18 09:58 | NUR ---
C/O ANXIETY AND ETOH USE/WITHDRAWL. PT STATES HIS LAST DRINK WAS 2 DAYS AGO AND HE DRANK "3- 24 PACKS OF BEER ALONG WITH UNK AMOUNT OF VODKA". PT STATES HE THINKS HE IS HAVING A SEIZURE, HOWEVER NO SEIZURE LIKE ACTIVITY NOTED AT THIS TIME. PT IS AWAKE & ALERT AND ANSWERING QUESTIONS APPROPRIATELY. PT STATES HE IS ANXIOUS AND HIS HANDS ARE TREMBLING. PT DENIES N/V. BED IN LOW POSITION, SIDE RAILS UP X2, SEIZURE PADS IN PLACE FOR PATIENT PROTECTION. SUCTION EQUIPTMENT AT BEDSIDE.
--- NOTE | 2019-10-18 10:15 | NUR ---
DR SIERRA AT BEDSIDE
--- NOTE | 2019-10-18 10:28 | NUR ---
PT MOM ERICA PROVIDED HER PHONE NUMBER AND STATED IF THERE ARE ANY QUESTIONS, PLEASE CALL HER. [phone]
--- NOTE | 2019-10-18 10:29 | NUR ---
DR. SIERRA AT BEDSIDE REEVALUATING PT AT BEDSIDE
[2019-10-18] MEDS ORDERED: LORazepam 1 MG TAB PO ONE (10:30)
--- NOTE | 2019-10-18 10:40 | NUR ---
CT AT BEDSIDE ; TAKING PT VIA GURJENELLE
--- NOTE | 2019-10-18 10:51 | NUR ---
PT BACK FROM CT VIA CHRISTIE
--- NOTE | 2019-10-18 10:52 | NUR ---
LAB AT BEDSIDE
--- NOTE | 2019-10-18 10:53 | NUR ---
PT RESTING, PUT BACK TO MONITOR, VSS STABLE
[2019-10-18 11:06] LABS: BASOPHILS % (AUTO) 0.5 % (0.0-2.0); EOSINOPHILS # (AUTO) 0.1 K/uL (0-0.4); EOSINOPHILS % (AUTO) 3.1 % (0.0-4.0); HEMATOCRIT 44.5 % (36-52); HEMOGLOBIN 14.9 g/dL (12.0-18.0); LYMPHOCYTES # (AUTO) 1.4 K/uL (2.0-11.5); LYMPHOCYTES % (AUTO) 32.5 % (20.5-51.1); MEAN CORPUSCULAR HEMOGLOBIN 33 pg (27-31); MEAN CORPUSCULAR HGB CONC 34 g/dL (33-37); MEAN CORPUSCULAR VOLUME 97.1 fL (80-94); MONOCYTES # (AUTO) 0.4 K/uL (0.8-1.0); MONOCYTES % (AUTO) 9.6 % (1.7-9.3); NEUTROPHILS # (AUTO) 2.4 K/uL (1.8-7.7); NEUTROPHILS % (AUTO) 54.3 % (42.2-75.2); PLATELET COUNT (AUTO) 154 K/uL (140-450); RED BLOOD CELL COUNT(AUTO) 4.58 MIL/uL (4.20-6.10); RED CELL DISTRIBUTION WIDTH 14.6 % (11.6-13.7); WHITE BLOOD COUNT (AUTO) 4.4 K/uL (4.8-10.8)
[2019-10-18 11:12] LABS: ANION GAP 20.1 (8-16); CARBON DIOXIDE 19.8 mmol/L (21-32); CREATININE 0.9 mg/dL (0.7-1.3); POTASSIUM 3.9 mmol/L (3.5-5.1)
[2019-10-18 11:18] LABS: ALBUMIN 3.7 g/dL (3.4-5.0); TOTAL BILIRUBIN 0.7 mg/dL (0.0-1.0)
--- NOTE | 2019-10-18 11:26 | NUR ---
SPOKE TO MOTHER OF PT PER DR SIERRA REQUEST. PT READY TO BE D/C, MOTHER WILL BE PICKING PT.
--- NOTE | 2019-10-18 12:02 | NUR ---
SPOKE TO MOTHER OF PT; PT READY FOR D/C; PER MOTHER ETA APPROXIMATELY 1 HOUR. CHARGE NURSE GEORGIANA NOTIFIED AND AWARE.
[2019-10-18 12:09] VITALS: BP 121/71
--- NOTE | 2019-10-18 12:09 | NUR ---
Patient discharged with v/s stable. Written and verbal after care instructions given and explained. Patient verbalized understanding. Ambulatory with steady gait. All questions addressed prior to discharge. Advised to follow up with PMD. PT AMBULATORY, A/OX4, VSS STABLE. Addendum: 10/18/19 at 1210 by MEDOF CHARGE NURSE GEORGIANA NOTIFIED OF D/C.
== END 2019-10-18 12:09 | disposition home or self-care (01) ==
LOC: MED 09:54
DX: F41.9 Anxiety disorder, unspecified (principal); G40.909 Epilepsy, unspecified, not intractable, without status epilepticus; F10.10 Alcohol abuse, uncomplicated; R51 Headache; Z88.0 Allergy status to penicillin; Z79.899 Other long term (current) drug therapy; Z98.890 Other specified postprocedural states
CPT/HCPCS: 36415; 70450; 80053; 82140; 85025; 99284; G0482

== ENCOUNTER 2019-11-18 18:22 | Emergency (ER) | payer OTHER ==
[~2019-11-18] VITALS: Ht 172.7 cm; Wt 125.2 kg
[2019-11-18 18:29] VITALS: BP 156/87
--- NOTE | 2019-11-18 18:31 | NUR ---
PT AMBULATED TO LOBBY WITH STEADY GAIT
--- NOTE | 2019-11-18 19:08 | NUR ---
PATIENT LEFT WITHOUT BEING SEEN BY DR. WAY. NO FURTHER CARE PROVIDED FOR PATIENT.
== END 2019-11-18 19:08 | disposition left against medical advice (07) ==
LOC: MED 18:22
DX: F10.10 Alcohol abuse, uncomplicated (principal); Z53.21 Procedure and treatment not carried out due to patient leaving prior to being seen by health care provider

== ENCOUNTER 2019-11-20 20:51 | Emergency (ER) | payer OTHER ==
[~2019-11-20] VITALS: Ht 172.7 cm; Wt 122.5 kg
[2019-11-20 20:51] VITALS: BP 144/98
--- NOTE | 2019-11-20 20:51 | NUR ---
PT PLACED ON OVER FLOW IN [facility] WITH EMS AT [facility] SIDE WHILE PT AWAITS BED TO BECOME AVAILABLE.
--- NOTE | 2019-11-20 21:14 | NUR ---
PT TRANSFERED FROM [facility] TO BED 10.
[2019-11-20] MEDS ORDERED: LORazepam 2 MG/ML VIAL IVP ONE (21:15)
[2019-11-20] MEDS ORDERED: NACL 0.9% 2,000 ML IV ONE (21:15)
--- NOTE | 2019-11-20 21:29 | NUR ---
39 Y/O MALE BIBA BLS C/O ETOH AND RT ARM CRAMPING. PT STATES 9/10 CRAMPING PAIN TO RT ARM SINCE TODAY. PT PRESENTS WITH GCS OF 14. PT STATES NAUSEA, DENIES VOMITING AND DIARRHEA. ABD SOFT, ROUND, NONTENDER. PT SITTING UPRIGHT IN BED, RR EVEN AND UNLABORED. PT CALM AND PLEASANT. VSS. MEDHX: SEIZURES ALLERGIES: PENICILLIN
[2019-11-20 21:39] LABS: BASOPHILS # (AUTO) 0.1 K/uL (0.00-0.22); EOSINOPHILS # (AUTO) 0.3 K/uL (0-0.4); EOSINOPHILS % (AUTO) 2.6 % (0.0-4.0); HEMATOCRIT 46.7 % (36-52); LYMPHOCYTES # (AUTO) 4.2 K/uL (2.0-11.5); LYMPHOCYTES % (AUTO) 42.4 % (20.5-51.1); MEAN CORPUSCULAR HEMOGLOBIN 32 pg (27-31); MEAN CORPUSCULAR HGB CONC 34 g/dL (33-37); MEAN CORPUSCULAR VOLUME 94.4 fL (80-94); MONOCYTES # (AUTO) 0.8 K/uL (0.8-1.0); MONOCYTES % (AUTO) 8.4 % (1.7-9.3); NEUTROPHILS # (AUTO) 4.5 K/uL (1.8-7.7); NEUTROPHILS % (AUTO) 45.6 % (42.2-75.2); PLATELET COUNT (AUTO) 195 K/uL (140-450); RED BLOOD CELL COUNT(AUTO) 4.94 MIL/uL (4.20-6.10); RED CELL DISTRIBUTION WIDTH 13.4 % (11.6-13.7); WHITE BLOOD COUNT (AUTO) 9.9 K/uL (4.8-10.8)
[2019-11-20 21:57] LABS: CARBON DIOXIDE 22.3 mmol/L (21-32); CHLORIDE 99 mmol/L (98-107); CREATININE 0.8 mg/dL (0.7-1.3); GFR ARICAN-AMERICAN 138 mL/min (>90); GLUCOSE 135 mg/dL (74-106); POTASSIUM 3.3 mmol/L (3.5-5.1); SODIUM SERUM 137 mmol/L (136-145); UREA NITROGEN, BLOOD 9 mg/dL (7-18)
[2019-11-20 22:05] LABS: ALBUMIN 4.2 g/dL (3.4-5.0); ASPARTATE AMINOTRANSFERASE 74 U/L (15-37); TOTAL BILIRUBIN 0.5 mg/dL (0.0-1.0)
[2019-11-20 22:08] LABS: SALICYLATE < 2.8 mg/dL (2.8-20.0)
[2019-11-20 22:11] LABS: ACETAMINOPHEN < 0.5 ug/ml (10-30)
--- NOTE | 2019-11-20 23:00 | NUR ---
PT RESTING IN BED EYES CLOSED, AROUSABLE TO VOICE. RR EVEN AND UNLABORED. NO C/O PAIN AT THIS TIME. VSS. WILL CONTINUE TO MONITOR
[2019-11-20 23:02] LABS: BARBITURATE, URINE NEG. ng/ml (NEG <=200); BENZODIAZEPINE, URINE NEG. ng/mL (NEG <=200); CANNABINOID, URINE NEG. ng/mL (NEG <=50); COCAINE, URINE NEG. ng/mL (NEG <=300); OPIATE, URINE NEG. ng/mL (NEG <=2000); PHENCYCLIDINE SCREEN,URINE NEG. ng/mL (NEG <=25)
--- NOTE | 2019-11-21 00:33 | NUR ---
VISIBLE RISE AND FALL OF THE CHEST. RR EVEN AND UNLABORED. PT REMAINS ON 2L NC, O2 SAT 99%. VSS. WILL CONTINUE TO MONITOR
--- NOTE | 2019-11-21 01:47 | NUR ---
PT AROUSABLE TO NAME, STATES HE IS TIRED. VSS. WILL CONTINUE TO MONITOR.
--- NOTE | 2019-11-21 03:16 | NUR ---
EYES CLOSED, VISIBLE RISE AND FALL OF THE CHEST, PT REMAINS ON MONITOR. VSS. WILL CONTINUE TO MONITOR.
--- NOTE | 2019-11-21 04:24 | NUR ---
STATES HE WANTS TO SLEEP A LITTLE LONGER. PT REMAINS ON MONITOR, VSS. WILL CONTINUE TO MONITOR.
[2019-11-21 05:37] VITALS: BP 130/84
--- NOTE | 2019-11-21 05:38 | NUR ---
Patient discharged with v/s stable. Written and verbal after care instructions given and explained. Patient verbalized understanding. Ambulatory with steady gait. All questions addressed prior to discharge. Advised to follow up with PMD.
== END 2019-11-21 05:37 | disposition home or self-care (01) ==
LOC: MED 20:51
DX: F10.129 Alcohol abuse with intoxication, unspecified (principal); R25.2 Cramp and spasm; Z86.73 Personal history of transient ischemic attack (TIA), and cerebral infarction without residual deficits; Z79.899 Other long term (current) drug therapy; Z88.0 Allergy status to penicillin
CPT/HCPCS: 36415; 80053; 80305; 85025; 96374; 99283; G0480; G0482; J2060; J7030

== ENCOUNTER 2019-11-25 22:03 | Emergency (ER) | payer OTHER ==
[~2019-11-25] VITALS: Ht 180.3 cm; Wt 111.1 kg
[2019-11-25 22:03] VITALS: BP 138/88
--- NOTE | 2019-11-25 22:20 | NUR ---
BIBA TO ER BED 3
[2019-11-25] MEDS ORDERED: NACL 0.9% 1,000 ML IV ONE (22:30)
--- NOTE | 2019-11-25 22:30 | NUR ---
39 Y/O BROUGHT IN BY AMBULANCE WITH C/O RT HAND PAIN; ETOH. PER EMS, PATIENT WAS FOUND AT A [place] [facility] IN [place] C/O RIGHT HAND PAIN. PATIENT HAD AN UNWITNESSED SEIZURE. PATIENT IS NONCOMPLIANT WITH MEDICATIONS. PAIN IS A 9/10. RIGHT HAND DEFORMITY NOTED. PER PATIENT, "I HAVE NOT TAKEN MY SEIZURE MEDICATIONS FOR THE NIGHT". A/OX2 TO PERSON AND PLACED; FOLLOWS COMMANDS. BREATHING UNLABORED AND SYMMETRICAL. ERMD MADE AWARE OF STATUS. VSS. SIDE RAILSX1. PLACED ON MONITOR. SEIZURE PADS IN PLACE. PMH: ETOH; SEIZURE MEDICATIONS RX:SEIZURE MEDICATIONS ALLERGIES:PCN
[2019-11-25 23:19] LABS: BASOPHILS % (AUTO) 0.5 % (0.0-2.0); EOSINOPHILS # (AUTO) 0.3 K/uL (0-0.4); EOSINOPHILS % (AUTO) 4.4 % (0.0-4.0); HEMATOCRIT 43.7 % (36-52); HEMOGLOBIN 14.7 g/dL (12.0-18.0); LYMPHOCYTES # (AUTO) 2.9 K/uL (2.0-11.5); LYMPHOCYTES % (AUTO) 46.4 % (20.5-51.1); MEAN CORPUSCULAR HEMOGLOBIN 32 pg (27-31); MEAN CORPUSCULAR HGB CONC 34 g/dL (33-37); MEAN CORPUSCULAR VOLUME 96.4 fL (80-94); MONOCYTES # (AUTO) 0.5 K/uL (0.8-1.0); MONOCYTES % (AUTO) 7.4 % (1.7-9.3); NEUTROPHILS # (AUTO) 2.6 K/uL (1.8-7.7); NEUTROPHILS % (AUTO) 41.3 % (42.2-75.2); PLATELET COUNT (AUTO) 138 K/uL (140-450); RED BLOOD CELL COUNT(AUTO) 4.53 MIL/uL (4.20-6.10); RED CELL DISTRIBUTION WIDTH 14.1 % (11.6-13.7); WHITE BLOOD COUNT (AUTO) 6.3 K/uL (4.8-10.8)
[2019-11-25 23:30] LABS: CARBON DIOXIDE 24.5 mmol/L (21-32); CREATININE 0.9 mg/dL (0.7-1.3); POTASSIUM 3.5 mmol/L (3.5-5.1)
[2019-11-25 23:37] LABS: ALBUMIN 3.9 g/dL (3.4-5.0); TOTAL BILIRUBIN 0.4 mg/dL (0.0-1.0)
--- NOTE | 2019-11-26 | NUR ---
PATIENT RESTING IN BED WITH EYES CLOSED. WILL CONTINUE TO MONITOR.
--- NOTE | 2019-11-26 02:10 | NUR ---
RESTING QUIETLY IN BED WITH EYES CLOSED. RESPIRATIONS EVEN, UNLABORED. VSS. WILL CONTINUE TO MONITOR.
--- NOTE | 2019-11-26 04:04 | NUR ---
RESTING IN BED WITH EYES CLOSED AND DEEP RESPIRATIONS. BREATHING EVEN, UNLABORED. CHEST RISE AND FALL VISUALIZED. AROUSABLE TO VERBAL STIMULI. PT STATES HE FEELS TIRED. WILL CONTINUE TO MONITOR.
[2019-11-26 06:45] VITALS: BP 98/65
== END 2019-11-26 06:45 | disposition home or self-care (01) ==
LOC: MED 22:03
DX: F10.129 Alcohol abuse with intoxication, unspecified (principal); Y90.9 Presence of alcohol in blood, level not specified; I63.9 Cerebral infarction, unspecified; Z79.899 Other long term (current) drug therapy; Z88.0 Allergy status to penicillin
CPT/HCPCS: 36415; 80053; 85025; 99283; G0482; J7030

== ENCOUNTER 2019-11-27 19:24 | Emergency (ER) | payer OTHER ==
[~2019-11-27] VITALS: Ht 172.7 cm; Wt 124.7 kg
[2019-11-27 19:30] VITALS: BP 140/82
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
--- NOTE | 2019-11-28 00:39 | NUR ---
PT RESTING WITH EYES CLOSED, VISIBLE RISE AND FALL OF THE CHEST. PT AROUSABLE TO NAME. PT REMAINS ON MONITOR. BED LOCKED AND IN LOW POSITION. X2 SIDE RAILS RAISED. VSS. WILL CONTINUE TO MONITOR.
--- NOTE | 2019-11-28 04:20 | NUR ---
PT ASLEEP ON BED. VISIBE CHEST RISE. VSS. AROUSABLE TO NAME. UNABLE TO AMBULATE WITH STEADY GAIT. WILL CONTINUE TO MONITOR.
[2019-11-28 05:23] VITALS: BP 109/65
--- NOTE | 2019-11-28 05:23 | NUR ---
PT DISCHARGED WITH PAPERWORK. EDUCATED PT REGARDING MEDICATION AND D/C INSTRUCTIONS. PT VERBALIZED UNDERSTANDING OF TEACHING. TOLD PT TO FOLLOW UP WITH PCP AND WHEN TO RETURN TO ED. PT AT STABLE CONDITION; AMBULATES WITH STEADY GAIT. ALL QUESTIONS ANSWERED.
== END 2019-11-28 05:23 | disposition home or self-care (01) ==
LOC: MED 19:24
DX: F10.129 Alcohol abuse with intoxication, unspecified (principal); Z86.73 Personal history of transient ischemic attack (TIA), and cerebral infarction without residual deficits; Z79.899 Other long term (current) drug therapy; Z88.0 Allergy status to penicillin
CPT/HCPCS: 36415; 99283; G0482

== ENCOUNTER 2019-12-11 15:02 | Emergency (ER) | payer OTHER ==
[~2019-12-11] VITALS: Ht 175.3 cm; Wt 124.7 kg
[2019-12-11 15:12] VITALS: BP 112/69
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
[2019-12-11] MEDS ORDERED: ACETAMINOPHEN EXTRA STRENGTH 500 MG TAB PO ONE (17:00)
[2019-12-11 17:05] VITALS: BP 134/89
== END 2019-12-11 17:04 | disposition home or self-care (01) ==
LOC: MED 15:02
DX: R51 Headache (principal); Z86.73 Personal history of transient ischemic attack (TIA), and cerebral infarction without residual deficits; Z79.899 Other long term (current) drug therapy; Z88.0 Allergy status to penicillin; V49.50XA Passenger injured in collision with unspecified motor vehicles in traffic accident, initial encounter; Y93.89 Activity, other specified; Y92.89 Other specified places as the place of occurrence of the external cause; Y99.8 Other external cause status
CPT/HCPCS: 99282

== ENCOUNTER 2019-12-26 13:16 | Emergency (ER) | payer OTHER ==
[~2019-12-26] VITALS: Ht 177.8 cm; Wt 104.3 kg
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
[2019-12-26 13:26] VITALS: BP 153/93
[2019-12-26] MEDS ORDERED: levETIRAcetam 1,000 MG in NACL 0.9% 100 ML IV ONE (13:45)
[2019-12-26] MEDS ORDERED: LORazepam 2 MG/ML VIAL IVP ONE (13:45)
[2019-12-26] MEDS ORDERED: NACL 0.9% 1,000 ML IV ONE (13:45)
[2019-12-26 14:33] LABS: ALBUMIN 4.2 g/dL (3.4-5.0); ANION GAP 24.5 (8-16); CARBON DIOXIDE 16.3 mmol/L (21-32); CREATININE 0.7 mg/dL (0.6-1.3); POTASSIUM 3.8 mmol/L (3.5-5.1); TOTAL BILIRUBIN 1.3 mg/dL (0.0-1.0)
[2019-12-26 15:07] LABS: BASOPHILS # (AUTO) 0.1 K/uL (0.00-0.22); BASOPHILS % (AUTO) 1.3 % (0.0-2.0); EOSINOPHILS # (AUTO) 0.1 K/uL (0-0.4); EOSINOPHILS % (AUTO) 1.7 % (0.0-4.0); HEMATOCRIT 44.6 % (36-52); HEMOGLOBIN 15.5 g/dL (12.0-18.0); LYMPHOCYTES # (AUTO) 2.4 K/uL (2.0-11.5); LYMPHOCYTES % (AUTO) 29.5 % (20.5-51.1); MEAN CORPUSCULAR HEMOGLOBIN 32 pg (27-31); MEAN CORPUSCULAR HGB CONC 35 g/dL (33-37); MEAN CORPUSCULAR VOLUME 92.4 fL (80-94); MONOCYTES # (AUTO) 0.9 K/uL (0.8-1.0); MONOCYTES % (AUTO) 10.8 % (1.7-9.3); NEUTROPHILS # (AUTO) 4.6 K/uL (1.8-7.7); NEUTROPHILS % (AUTO) 56.7 % (42.2-75.2); PLATELET COUNT (AUTO) 187 K/uL (140-450); RED BLOOD CELL COUNT(AUTO) 4.83 MIL/uL (4.20-6.10); RED CELL DISTRIBUTION WIDTH 14.3 % (11.6-13.7); WHITE BLOOD COUNT (AUTO) 8.2 K/uL (4.8-10.8)
--- NOTE | 2019-12-26 15:14 | NUR ---
Stable VSS Afebrile Has had no seizure activity Has had Ativan and also Keppra as ordered
[2019-12-26 16:16] VITALS: BP 141/81
--- NOTE | 2019-12-26 16:16 | NUR ---
Pt reports significant improvement in symptoms. Pt with no cramping/shaking of hands, AOX4, VSS, rr even and unlabored, no acute distress. Pt given bus pass, stated that he will take the bus home, did not want to call pt's mother. Pt stated he is out of his Rx Keppra, requested for Rx Keppra PO 1500mg BID, Dr Harper made aware.
--- NOTE | 2019-12-26 16:23 | NUR ---
Pt told to wait in lobby to wait for Rx Keppra, but pt left the lobby and did not wait before Rx Keppra can be written, Dr Harper made aware.
== END 2019-12-26 16:24 | disposition home or self-care (01) ==
LOC: MED 13:16
DX: F41.0 Panic disorder [episodic paroxysmal anxiety] (principal); F10.10 Alcohol abuse, uncomplicated; Z86.73 Personal history of transient ischemic attack (TIA), and cerebral infarction without residual deficits; Z98.890 Other specified postprocedural states; Z79.899 Other long term (current) drug therapy; Z88.0 Allergy status to penicillin
CPT/HCPCS: 36415; 80053; 85025; 96365; 96375; 99284; G0482; J1953; J2060; J7030

== ENCOUNTER 2020-01-01 10:45 | Emergency (ER) | payer OTHER ==
[~2020-01-01] VITALS: Ht 170.2 cm; Wt 124.7 kg
[2020-01-01 10:47] VITALS: BP 168/106
--- NOTE | 2020-01-01 11:00 | NUR ---
BIBA TO BED 10.
[2020-01-01] MEDS ORDERED: KETOROLAC 60 MG/2 ML VIAL IM ONE (11:15)
--- NOTE | 2020-01-01 11:19 | NUR ---
INFORMED DR SMITH THAT PT HAS IV PLACED BY EMS, DR SMITH STATES HE WILL CHANGE TORADOL TO IVP
[2020-01-01] MEDS ORDERED: KETOROLAC 30 MG/ML VIAL IVP ONE (11:20)
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
--- NOTE | 2020-01-01 11:53 | NUR ---
Patient transferred to bed 11 for further care. RN re-evaluating the patient at bedside.
[2020-01-01] MEDS ORDERED: MORPHINE SULFATE 4 MG/ML SYR IVP ONE (13:15)
--- NOTE | 2020-01-01 13:22 | NUR ---
PT STILL C/O 06/17 PAIN. MORPHINE IVP ADMINISTERED
[2020-01-01 13:56] VITALS: BP 129/62
== END 2020-01-01 13:57 | disposition home or self-care (01) ==
LOC: MED 10:45
DX: S09.90XA Unspecified injury of head, initial encounter (principal); Z86.73 Personal history of transient ischemic attack (TIA), and cerebral infarction without residual deficits; Z98.890 Other specified postprocedural states; Z79.899 Other long term (current) drug therapy; Z88.0 Allergy status to penicillin; W19.XXXA Unspecified fall, initial encounter; Y93.89 Activity, other specified; Y92.89 Other specified places as the place of occurrence of the external cause; Y99.8 Other external cause status
CPT/HCPCS: 96374; 96375; 99284; J1885; J2270

== ENCOUNTER 2020-05-17 22:32 | Emergency (ER) | payer OTHER, SELFPAY ==
[~2020-05-17] VITALS: Ht 175.3 cm; Wt 131.5 kg
[~2020-05-17 22:32] MED LIST changes: -AMAN100S37 PO; -COLC0.6C PO; -DOCU-299 PO; -DONE5TAB6 PO; -FAMO-90 PO; -KEP500 PO; +LEVE1000 PO; -ZYL300 PO
[2020-05-17] MEDS ORDERED: LORazepam 2 MG/ML VIAL IVP ONE (22:35)
[2020-05-17] MEDS ORDERED: NACL 0.9% 1,000 ML IV ONE (22:35)
[2020-05-17 22:37] VITALS: BP 119/63
[2020-05-17 22:57] LABS: BASOPHILS # (AUTO) 0.2 K/uL (0.00-0.22); BASOPHILS % (AUTO) 1.9 % (0.0-2.0); EOSINOPHILS # (AUTO) 0.4 K/uL (0-0.4); EOSINOPHILS % (AUTO) 4.2 % (0.0-4.0); HEMATOCRIT 43.7 % (36-52); HEMOGLOBIN 14.9 g/dL (12.0-18.0); LYMPHOCYTES # (AUTO) 3.5 K/uL (2.0-11.5); LYMPHOCYTES % (AUTO) 36.2 % (20.5-51.1); MEAN CORPUSCULAR HEMOGLOBIN 33 pg (27-31); MEAN CORPUSCULAR HGB CONC 34 g/dL (33-37); MEAN CORPUSCULAR VOLUME 96.3 fL (80-94); MONOCYTES # (AUTO) 0.9 K/uL (0.8-1.0); MONOCYTES % (AUTO) 9.5 % (1.7-9.3); NEUTROPHILS # (AUTO) 4.6 K/uL (1.8-7.7); NEUTROPHILS % (AUTO) 48.2 % (42.2-75.2); PLATELET COUNT (AUTO) 160 K/uL (140-450); RED BLOOD CELL COUNT(AUTO) 4.54 MIL/uL (4.20-6.10); RED CELL DISTRIBUTION WIDTH 14.6 % (11.6-13.7); WHITE BLOOD COUNT (AUTO) 9.7 K/uL (4.8-10.8)
[2020-05-17 23:13] LABS: ANION GAP 20.4 (8-16); CARBON DIOXIDE 21.4 mmol/L (21-32); POTASSIUM 3.8 mmol/L (3.5-5.1)
[2020-05-17 23:16] LABS: MAGNESIUM 2.1 mg/dL (1.8-2.4)
[2020-05-17 23:22] LABS: APPEARANCE,URINE CLEAR (CLEAR); BILIRUBIN,URINE NEGATIVE (NEGATIVE); BLOOD, URINE TRACE-I (NEGATIVE); COLOR,URINE YELLOW (YELLOW); LEUKOCYTE ESTERASE ,URINE 1+ (NEGATIVE); NITRITE, URINE NEGATIVE (NEGATIVE); UGLUCOSE NEGATIVE (NEGATIVE)
[2020-05-17 23:41] LABS: BARBITURATE, URINE NEGATIVE ng/ml (NEG <=200); BENZODIAZEPINE, URINE NEGATIVE ng/mL (NEG <=200); CANNABINOID, URINE NEGATIVE ng/mL (NEG <=50); COCAINE, URINE NEGATIVE ng/mL (NEG <=300); OPIATE, URINE NEGATIVE ng/mL (NEG <=2000); PHENCYCLIDINE SCREEN,URINE NEGATIVE ng/mL (NEG <=25)
[2020-05-17 23:55] LABS: RBC,URINE 0-5 /HPF (0-5); WBC,URINE 20-60 /HPF (0-5)
[2020-05-18] MEDS ORDERED: cefTRIAXone 1,000 MG VIAL ONE (01:34)
[2020-05-18 04:48] VITALS: BP 128/84
== END 2020-05-18 04:35 | disposition home or self-care (01) ==
LOC: MED 22:32
DX: N39.0 Urinary tract infection, site not specified (principal); F10.10 Alcohol abuse, uncomplicated; I63.9 Cerebral infarction, unspecified; R56.9 Unspecified convulsions; Z48.811 Encounter for surgical aftercare following surgery on the nervous system; Z79.899 Other long term (current) drug therapy; Z88.0 Allergy status to penicillin
CPT/HCPCS: 36415; 80048; 80305; 81001; 83735; 85025; 87086; 87186; 96365; 96375; 99285; G0482; J0696; J2060; J7030; 96374; 99284

== ENCOUNTER 2020-06-18 05:25 | Emergency (ER) | payer OTHER ==
[~2020-06-18] VITALS: Ht 167.6 cm; Wt 136.1 kg
[2020-06-18 05:35] VITALS: BP 131/91
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
--- NOTE | 2020-06-18 06:21 | NUR ---
PT STATES TAKING 18 BEER TODAY.
--- NOTE | 2020-06-18 06:21 | NUR ---
DR. SMITH AT BEDSIDE EVALUATING PT.
[2020-06-18] MEDS ORDERED: levETIRAcetam 500 MG TAB PO ONE (06:25)
[2020-06-18] MEDS ORDERED: KETOROLAC 60 MG/2 ML VIAL IM ONE (06:25)
[2020-06-18 06:45] VITALS: BP 131/91
== END 2020-06-18 06:44 | disposition home or self-care (01) ==
LOC: MED 05:25
DX: R56.9 Unspecified convulsions (principal); F10.129 Alcohol abuse with intoxication, unspecified; Z98.890 Other specified postprocedural states; Z79.899 Other long term (current) drug therapy; Z88.0 Allergy status to penicillin
CPT/HCPCS: 96372; 99283; J1885

== ENCOUNTER 2020-06-18 23:10 | Emergency (ER) | payer OTHER ==
[~2020-06-18] VITALS: Ht 172.7 cm; Wt 122.5 kg
[2020-06-18 23:21] VITALS: BP 140/90
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
--- NOTE | 2020-06-19 00:21 | NUR ---
PT ASLEEP IN BED IN POSITION OF COMFORT, BED LOW AND LOCKED, SIDERAILS UP, VSS, WILL CONTINUE TO MONITOR
[2020-06-19] MEDS ORDERED: levETIRAcetam 500 MG TAB PO ONE (01:00)
--- NOTE | 2020-06-19 01:30 | NUR ---
PT ASLEEP IN BED IN POSITION OF COMFORT, BED LOW AND LOCKED, SIDERAILS UP, VSS, WILL CONTINUE TO MONITOR
[2020-06-19] MEDS ORDERED: levETIRAcetam 500 MG TAB ONE ×2 (02:12→02:14)
[2020-06-19 02:20] VITALS: BP 140/90
== END 2020-06-19 02:20 | disposition home or self-care (01) ==
LOC: MED 23:10
DX: F10.129 Alcohol abuse with intoxication, unspecified (principal); R56.9 Unspecified convulsions; Z88.0 Allergy status to penicillin; Z85.841 Personal history of malignant neoplasm of brain; Z79.899 Other long term (current) drug therapy
CPT/HCPCS: 99283

== ENCOUNTER 2020-06-19 12:22 | Emergency (ER) | payer OTHER ==
[~2020-06-19] VITALS: Ht 172.7 cm; Wt 122.5 kg
--- NOTE | 2020-06-19 12:22 | NUR ---
BIBA TAKEN TO BED 2
[2020-06-19 12:29] VITALS: BP 122/73
--- NOTE | 2020-06-19 12:38 | NUR ---
39/M BIBA c/o seizure x today. EMS/bystanders did not witness any seizures; pt claimed to be having seizures. Unknown what type of seizure. Per EMS pt was not taking antiseizure meds for few days. Pt tested COVID + approx 1 month ago. Pt reports 9/10 HARRIS at this time and drinking alcohol today. VSS. Connected to bedside monitor. Sz pads in place. Hx- TBI, sz
[2020-06-19] MEDS ORDERED: levETIRAcetam 1,000 MG in NACL 0.9% 100 ML IV ONE (13:15)
[2020-06-19] MEDS ORDERED: NACL 0.9% 500 ML IV ONE (13:15)
[2020-06-19] MEDS ORDERED: levETIRAcetam 100 MG/ML VIAL IV ONE (13:19)
[2020-06-19 13:38] LABS: BASOPHILS % (AUTO) 0.1 % (0.0-2.0); EOSINOPHILS # (AUTO) 0.2 K/uL (0-0.4); EOSINOPHILS % (AUTO) 2.1 % (0.0-4.0); HEMATOCRIT 41.7 % (36-52); HEMOGLOBIN 14.1 g/dL (12.0-18.0); LYMPHOCYTES # (AUTO) 2.2 K/uL (2.0-11.5); LYMPHOCYTES % (AUTO) 28.7 % (20.5-51.1); MEAN CORPUSCULAR HEMOGLOBIN 33 pg (27-31); MEAN CORPUSCULAR HGB CONC 34 g/dL (33-37); MEAN CORPUSCULAR VOLUME 98.1 fL (80-94); MONOCYTES # (AUTO) 0.5 K/uL (0.8-1.0); MONOCYTES % (AUTO) 6.2 % (1.7-9.3); NEUTROPHILS # (AUTO) 4.9 K/uL (1.8-7.7); NEUTROPHILS % (AUTO) 62.9 % (42.2-75.2); PLATELET COUNT (AUTO) 204 K/uL (140-450); RED BLOOD CELL COUNT(AUTO) 4.26 MIL/uL (4.20-6.10); RED CELL DISTRIBUTION WIDTH 14.9 % (11.6-13.7); WHITE BLOOD COUNT (AUTO) 7.8 K/uL (4.8-10.8)
--- NOTE | 2020-06-19 13:38 | NUR ---
PT ADMITS TO DRINKING 12 BEERS AND "SOME TEQUILA AND VODKA" THIS MORNING
--- NOTE | 2020-06-19 13:39 | NUR ---
PROVIDED PT WITH URINAL, HE STATED HE IS UNABLE TO PROVIDE URINE AT THIS TIME.
[2020-06-19 14:18] LABS: ACETAMINOPHEN < 0.5 ug/ml (10-30); ALBUMIN 3.6 g/dL (3.4-5.0); ANION GAP 21.4 (8-16); ASPARTATE AMINOTRANSFERASE 92 U/L (15-37); CARBON DIOXIDE 21.3 mmol/L (21-32); CHLORIDE 107 mmol/L (98-107); CREATININE 0.8 mg/dL (0.6-1.3); GFR ARICAN-AMERICAN 138 mL/min (>90); GLUCOSE 100 mg/dL (74-106); POTASSIUM 3.7 mmol/L (3.5-5.1); SODIUM SERUM 146 mmol/L (136-145); TOTAL BILIRUBIN 0.6 mg/dL (0.0-1.0); UREA NITROGEN, BLOOD 4 mg/dL (7-18)
[2020-06-19 14:19] LABS: SALICYLATE < 2.8 mg/dL (2.8-20.0)
[2020-06-19 16:43] VITALS: BP 131/76
--- NOTE | 2020-06-21 08:35 | NUR ---
LATEY ENTRY- NORMAL SALINE 0.9% IV FLUIDS DISCONTINUED AT 1644. KEPPRA IV DISCONTINUED AT 1644.
== END 2020-06-19 16:44 | disposition home or self-care (01) ==
LOC: MED 12:22
DX: R56.9 Unspecified convulsions (principal); F10.129 Alcohol abuse with intoxication, unspecified; Z79.899 Other long term (current) drug therapy; Z88.0 Allergy status to penicillin
CPT/HCPCS: 36415; 70450; 70486; 71045; 80053; 85025; 93005; 96365; 96366; 99285; G0480; G0482; J1953; J7030; Q0092

== ENCOUNTER 2020-07-10 20:51 | Emergency (ER) | payer OTHER ==
[~2020-07-10] VITALS: Ht 177.8 cm; Wt 126.6 kg
[2020-07-10 21:02] VITALS: BP 142/99
[2020-07-11 05:49] VITALS: BP 109/62
== END 2020-07-11 05:49 | disposition home or self-care (01) ==
LOC: MED 20:51
DX: F10.129 Alcohol abuse with intoxication, unspecified (principal); Z98.890 Other specified postprocedural states; Z79.899 Other long term (current) drug therapy; Z88.0 Allergy status to penicillin
CPT/HCPCS: 99285

== ENCOUNTER 2020-07-25 12:51 | Emergency (ER) | payer OTHER, SELFPAY ==
[~2020-07-25] VITALS: Ht 172.7 cm; Wt 68.0 kg
[2020-07-25 13:09] VITALS: BP 118/67
--- NOTE | 2020-07-25 13:15 | NUR ---
39/M C/O SORE THROAT WITH LOSS OF TASTE AND SMELL X1 DAY. PT REPROTS HIS FATHER TESTED POSITIVE FOR COVID AND HE LIVES AT HOME WITH HIM. DENIES COUGH OR SOB. VSS.
--- NOTE | 2020-07-25 13:25 | NUR ---
covid swab collected
--- NOTE | 2020-07-25 13:26 | NUR ---
dr mcginnis at chairside evaluating pt.
--- NOTE | 2020-07-25 13:37 | NUR ---
Patient discharged with v/s stable. Written and verbal after care instructions given and explained regarding covid 19. Patient alert, oriented and verbalized understanding of instructions. Ambulatory with steady gait. All questions addressed prior to discharge. ID band removed. Patient advised to follow up with PMD. Rx of motrin given. Patient educated on indication of medication including possible reaction and side effects. Opportunity to ask questions provided and answered.
[2020-07-25 13:43] VITALS: BP 118/67
== END 2020-07-25 13:37 | disposition home or self-care (01) ==
LOC: MED 12:51
DX: J02.9 Acute pharyngitis, unspecified (principal); Z20.828 Contact with and (suspected) exposure to other viral communicable diseases; Z88.0 Allergy status to penicillin; Z79.899 Other long term (current) drug therapy
CPT/HCPCS: 99283; U0003

== ENCOUNTER 2020-07-30 07:03 | Emergency (ER) | payer OTHER, SELFPAY ==
[~2020-07-30] VITALS: Ht 175.3 cm; Wt 122.5 kg
--- NOTE | 2020-07-30 07:15 | NUR ---
Pt wheelchair assisted to bed 06
[2020-07-30 07:16] VITALS: BP 127/82
--- NOTE | 2020-07-30 07:18 | NUR ---
39 y/o male from home c/o right flank pain radiating to right lower abd x 3 days. Pt states he was seen at [facility] yesterday for same pain yesterday and sent home. Denies N/V/D. 10 sharp, constant pain. Denies any other urinary symptoms. Skin warm, moist, intact. Pt admits to drinking 8 24oz Budwisers yesterday. Denies drug use. medhx: brain surgery, seizures
--- NOTE | 2020-07-30 07:23 | NUR ---
Dr Gotti at bedside examining pt
[2020-07-30] MEDS ORDERED: ACETAMINOPHEN 325 MG TAB PO ONE (07:40)
--- NOTE | 2020-07-30 07:43 | NUR ---
Pt taken to xray by wheelchair
--- NOTE | 2020-07-30 08:05 | NUR ---
Pt returned from xray
--- NOTE | 2020-07-30 08:46 | NUR ---
Spoke to pts motherImani-- call for updates [phone]
[2020-07-30 08:54] VITALS: BP 127/82
--- NOTE | 2020-07-30 09:00 | NUR ---
Note cara in EDM - 07/30/20 at 0911 by MEDSRUTHI Patient will be admitted to care of Dr casanova. Admited to [facility]. Will go to room 125B. Belongings list completed. Report to alma villagran.
--- NOTE | 2020-07-30 09:11 | NUR ---
Patient discharged with v/s stable. Written and verbal after care instructions given and explained. Patient alert, oriented and verbalized understanding of instructions. Ambulatory with steady gait. All questions addressed prior to discharge. ID band removed. Patient advised to follow up with PMD. Rx of Naprosy, and Hamel 5mg-325mg. given. Patient educated on indication of medication including possible reaction and side effects. Opportunity to ask questions provided and answered. Pt instructed to wait in lobby for mother to pick pack worker pt
== END 2020-07-30 09:11 | disposition home or self-care (01) ==
LOC: MED 07:03
DX: S22.31XA Fracture of one rib, right side, initial encounter for closed fracture (principal); R56.9 Unspecified convulsions; Z88.0 Allergy status to penicillin; Z79.899 Other long term (current) drug therapy; Z48.811 Encounter for surgical aftercare following surgery on the nervous system; X58.XXXA Exposure to other specified factors, initial encounter; Y93.89 Activity, other specified; Y92.89 Other specified places as the place of occurrence of the external cause; Y99.8 Other external cause status
CPT/HCPCS: 71101; 93005; 99283

== ENCOUNTER 2020-09-28 22:29 | Emergency (ER) | payer OTHER ==
[~2020-09-28] VITALS: Ht 177.8 cm; Wt 122.5 kg
[2020-09-28 22:55] VITALS: BP 121/76
[2020-09-28] MEDS ORDERED: DOPPLER MC ONE (23:42)
--- NOTE | 2020-09-29 00:28 | NUR ---
PT AMBULATED TO BED #7
--- NOTE | 2020-09-29 00:32 | NUR ---
PT 40 Y/O MALE BIB SELF FOR C/O 07/18 HARRIS X 1 DAY. PT PRESENTS ORIENTED TO PERSON, PLACE, AND TIME. PT UNABLE TO GIVE CLEAR INFORMATION TO WHY HE WANTS TO BE SEEN MY ERMD. "I LOVE GOD, I KNOW A SEIZURE IS COMING, I TAKE MY MEDS BUT NO DRUGS. I HAVE A HEADACHE." PT PERRLA 4MM BRISK BILAT. PT ADMITS TO DRINKING 18 BOTTLES OF BEER YESTERDAY. NO TREMORS NOTED, SKIN CLEAN AND DRY, NO N/V/D. DENIES ANY VISUAL OR AUDITORY HALLUCINATIONS. ROM INTACT, STRONG BIT WELDER BILAT. SIZURE PRECAUTIONS IN PLACE, SUCTION SET UP AT BEDSIDE. ACCUCKECK: 98. 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 MEDHX: SEIZURES, ETOH ABUSE ALLERGIES: PCN
[2020-09-29] MEDS ORDERED: NACL 0.9% 1,000 ML IV ONE (00:40)
--- NOTE | 2020-09-29 01:09 | NUR ---
ERMD AT BEDSIDE.
[2020-09-29] MEDS ORDERED: levETIRAcetam 1,000 MG in NACL 0.9% 100 ML IV ONE (01:15)
[2020-09-29] MEDS ORDERED: levETIRAcetam 100 MG/ML VIAL IV ONE (01:22)
--- NOTE | 2020-09-29 02:32 | NUR ---
Patient appears to be resting comfortably in bed. Pt responsive to verbal stimuli. Respirations even and unlabored. Pt remains on rn cardiac. VSS. Seizure precautions remain in place.
--- NOTE | 2020-09-29 03:58 | NUR ---
PT STATES,"MY HEAD DOESN'T HURT ANYMORE. I FEEL BETTER." PAIN 0/10 PT VSS ON CASH ROOM CLERK.
[2020-09-29 04:00] VITALS: BP 135/71
--- NOTE | 2020-09-29 04:00 | NUR ---
IV removed, catheter intact and site benign. Applied folded 4x4 gauze and tape to stop bleeding.
== END 2020-09-29 04:00 | disposition home or self-care (01) ==
LOC: MED 22:29
DX: F10.10 Alcohol abuse, uncomplicated (principal); R56.9 Unspecified convulsions; Z88.0 Allergy status to penicillin; Z79.899 Other long term (current) drug therapy
CPT/HCPCS: 96361; 96365; 99284; J1953; J7030

== ENCOUNTER 2020-11-09 03:25 | Emergency (ER) | payer OTHER ==
[~2020-11-09] VITALS: Ht 170.2 cm; Wt 113.4 kg
--- NOTE | 2020-11-09 03:30 | NUR ---
to Bed 02
--- NOTE | 2020-11-09 03:32 | NUR ---
sz precautions in place.
[2020-11-09 03:35] VITALS: BP 101/63
--- NOTE | 2020-11-09 03:45 | NUR ---
Dr. Roland with pt for MSE.
[2020-11-09] MEDS ORDERED: levETIRAcetam 1,000 MG in NACL 0.9% 100 ML IV ONE (03:50)
--- NOTE | 2020-11-09 04:00 | NUR ---
see complete assessment
[2020-11-09] MEDS ORDERED: levETIRAcetam 100 MG/ML VIAL IV ONE (04:12)
[2020-11-09 04:22] LABS: LYMPHOCYTES % (AUTO) 49.4 % (20.5-51.1); MONOCYTES # (AUTO) 0.9 K/uL (0.8-1.0); RED BLOOD CELL COUNT(AUTO) 4.82 MIL/uL (4.20-6.10)
[2020-11-09 04:30] LABS: BASOPHILS % (AUTO) 0.4 % (0.0-2.0); EOSINOPHILS # (AUTO) 0.3 K/uL (0-0.4); EOSINOPHILS % (AUTO) 2.7 % (0.0-4.0); HEMATOCRIT 45.9 % (36-52); HEMOGLOBIN 15.9 g/dL (12.0-18.0); LYMPHOCYTES # (AUTO) 5.5 K/uL (2.0-11.5); MEAN CORPUSCULAR HEMOGLOBIN 33 pg (27-31); MEAN CORPUSCULAR HGB CONC 35 g/dL (33-37); MEAN CORPUSCULAR VOLUME 95.2 fL (80-94); MONOCYTES % (AUTO) 8.1 % (1.7-9.3); NEUTROPHILS # (AUTO) 4.3 K/uL (1.8-7.7); NEUTROPHILS % (AUTO) 39.4 % (42.2-75.2); PLATELET COUNT (AUTO) 163 K/uL (140-450); RED CELL DISTRIBUTION WIDTH 14.3 % (11.6-13.7)
--- NOTE | 2020-11-09 04:32 | NUR ---
restarted IV on left AC 18g
[2020-11-09 04:42] LABS: ALBUMIN 4.2 g/dL (3.4-5.0); ANION GAP 18.6 (8-16); CARBON DIOXIDE 24.9 mmol/L (21-32); CREATININE 0.8 mg/dL (0.6-1.3); POTASSIUM 4.5 mmol/L (3.5-5.1); TOTAL BILIRUBIN 0.4 mg/dL (0.0-1.0)
--- NOTE | 2020-11-09 05:55 | NUR ---
Patient discharged with v/s stable. Written and verbal after care instructions given and explained. Patient alert, oriented and verbalized understanding of instructions. Ambulatory with steady gait. All questions addressed prior to discharge. ID band removed. Patient advised to follow up with PMD. Rx of Kesunni given. Patient educated on indication of medication including possible reaction and side effects. Opportunity to ask questions provided and answered.
[2020-11-09 05:56] VITALS: BP 103/69
== END 2020-11-09 05:55 | disposition home or self-care (01) ==
LOC: MED 03:25
DX: R56.9 Unspecified convulsions (principal); F10.10 Alcohol abuse, uncomplicated; Z91.14 Patient's other noncompliance with medication regimen; Y90.8 Blood alcohol level of 240 mg/100 ml or more
CPT/HCPCS: 36415; 80053; 85025; 96365; 99284; G0482; J1953

== ENCOUNTER 2021-02-03 13:25 | Emergency (ER) | payer OTHER ==
--- NOTE | 2021-02-03 13:42 | NUR ---
PT CALLED IN LOBBY, NO ANSWER.
--- NOTE | 2021-02-03 13:53 | NUR ---
PT CALLED IN LOBBY FOR SECOND TIME, NO ANSWER.
--- NOTE | 2021-02-03 14:04 | NUR ---
PT CALLED IN LOBBY FOR THIRD TIME, NO ANSWER.
== END 2021-02-03 13:42 | disposition left against medical advice (07) ==
LOC: MED 13:25
DX: Z53.21 Procedure and treatment not carried out due to patient leaving prior to being seen by health care provider (principal)

== ENCOUNTER 2021-02-04 00:53 | Emergency (ER) | payer OTHER ==
[~2021-02-04] VITALS: Ht 167.6 cm; Wt 112.9 kg
[2021-02-04 00:58] VITALS: BP 134/91
--- NOTE | 2021-02-04 00:58 | NUR ---
PT AMBULATED TO ER BED 1
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
--- NOTE | 2021-02-04 02:00 | NUR ---
PT PROVIDED URINAL FOR ENCOURAGEMENT OF URINE SAMPLE.
[2021-02-04] MEDS ORDERED: NACL 0.9% 2,000 ML IV ONE ×2 (02:20→04:25)
[2021-02-04] MEDS ORDERED: NACL 0.9% 1,000 ML IV ONE (02:20)
[2021-02-04] MEDS ORDERED: ONDANSETRON 4 MG/2 ML VIAL IVP ONE (02:20)
[2021-02-04] MEDS ORDERED: LORazepam 2 MG/ML VIAL IVP ONE (02:20)
--- NOTE | 2021-02-04 02:36 | NUR ---
PT TAKEN TO RADIOLGOY VIA W/C.
[2021-02-04 02:40] LABS: BASOPHILS % (AUTO) 0.4 % (0.0-2.0); EOSINOPHILS # (AUTO) 0.2 K/uL (0-0.4); EOSINOPHILS % (AUTO) 2.9 % (0.0-4.0); HEMATOCRIT 42.1 % (36-52); HEMOGLOBIN 14.4 g/dL (12.0-18.0); LYMPHOCYTES % (AUTO) 31.5 % (20.5-51.1); MEAN CORPUSCULAR HEMOGLOBIN 34 pg (27-31); MEAN CORPUSCULAR HGB CONC 34 g/dL (33-37); MEAN CORPUSCULAR VOLUME 98.1 fL (80-94); MONOCYTES # (AUTO) 0.4 K/uL (0.8-1.0); MONOCYTES % (AUTO) 6.7 % (1.7-9.3); NEUTROPHILS # (AUTO) 3.7 K/uL (1.8-7.7); NEUTROPHILS % (AUTO) 58.5 % (42.2-75.2); PLATELET COUNT (AUTO) 125 K/uL (140-450); RED BLOOD CELL COUNT(AUTO) 4.29 MIL/uL (4.20-6.10); RED CELL DISTRIBUTION WIDTH 14.9 % (11.6-13.7); WHITE BLOOD COUNT (AUTO) 6.4 K/uL (4.8-10.8)
--- NOTE | 2021-02-04 02:52 | NUR ---
PT RETURNE FROM RADIOLOGY , RECONNECTED TO WORKDAY SENIOR ASSOCIATE.
--- NOTE | 2021-02-04 02:58 | NUR ---
ekg performed at bedside. ekg reads sinus rhythm @ 87
[2021-02-04 03:08] LABS: ALBUMIN 3.9 g/dL (3.4-5.0); ANION GAP 17.4 (8-16); CARBON DIOXIDE 26.2 mmol/L (21-32); CREATININE 0.8 mg/dL (0.6-1.3); POTASSIUM 3.6 mmol/L (3.5-5.1); TOTAL BILIRUBIN 0.5 mg/dL (0.0-1.0)
--- NOTE | 2021-02-04 03:10 | NUR ---
PT OXYGEN LEVEL DECREASED TO 75% , PT PLACED ON 4L NC - OXYGEN LEVEL INCREASED TO 100%. ERMD MADE AWARE.
--- NOTE | 2021-02-04 03:20 | NUR ---
PT UNABLE TO PROVIDED URINE AT THIS TIME. GALINA MADE AWARE.
--- NOTE | 2021-02-04 04:55 | NUR ---
Pt resting w/ eyes closed, bed locked and in lowest position, HOB elevated, side rails x 2 for pt safety. Visible rise and fall of chest. Oxygen level 99% on 4L NC. No acute distress noted.
--- NOTE | 2021-02-04 05:00 | NUR ---
Pt encouraged to provided urine sample, pt nodded when asked if he could give a urine sample in provided urine and then closed eyes and went back to sleep. TERRYD made aware.
--- NOTE | 2021-02-04 05:00 | NUR ---
delay in fluids d/t previous ordered fluids still running at this time.
--- NOTE | 2021-02-04 06:46 | NUR ---
pt successfully passed road test of approximately 40 feet
--- NOTE | 2021-02-04 06:49 | NUR ---
PATIENT PASSED ROAD TEST. STEADY GAIT
--- NOTE | 2021-02-04 06:50 | NUR ---
Pt unable to provide urine sample - ERMD made aware. No need for urine sample at this time.
--- NOTE | 2021-02-04 07:00 | NUR ---
IV removed, catheter intact and site benign. Applied folded 4x4 gauze and tape to stop bleeding.
[2021-02-04 07:03] VITALS: BP 108/64
== END 2021-02-04 07:03 | disposition home or self-care (01) ==
LOC: MED 00:53
DX: F10.129 Alcohol abuse with intoxication, unspecified (principal); R41.82 Altered mental status, unspecified; Z88.0 Allergy status to penicillin; Z79.899 Other long term (current) drug therapy
CPT/HCPCS: 36415; 70450; 71045; 80053; 82140; 84484; 85025; 93005; 96361; 96374; 99285; G0482; J2405

== ENCOUNTER 2021-02-05 22:39 | Emergency (ER) | payer OTHER ==
[~2021-02-05] VITALS: Ht 180.3 cm; Wt 122.5 kg
[2021-02-05 22:57] VITALS: BP 142/90
--- NOTE | 2021-02-05 23:00 | NUR ---
TO LOBBY A/W BED AMBULATORY
--- NOTE | 2021-02-05 23:59 | NUR ---
PATIENT AMBUALTED TO BED 7 WITH STEADY GAIT.
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
--- NOTE | 2021-02-06 00:25 | NUR ---
ERMD AT BEDSIDE ASSESSING PATIENT.
[2021-02-06 01:04] VITALS: BP 142/90
== END 2021-02-06 01:04 | disposition home or self-care (01) ==
LOC: MED 22:39
DX: F10.129 Alcohol abuse with intoxication, unspecified (principal); R56.9 Unspecified convulsions; R03.0 Elevated blood-pressure reading, without diagnosis of hypertension; Z88.0 Allergy status to penicillin; Z79.899 Other long term (current) drug therapy; Z98.890 Other specified postprocedural states
CPT/HCPCS: 99281

== ENCOUNTER 2021-02-28 18:48 | Emergency (ER) | payer OTHER ==
[~2021-02-28] VITALS: Ht 177.8 cm; Wt 81.6 kg
--- NOTE | 2021-02-28 18:58 | NUR ---
Pt taken to ER bed 1.
[2021-02-28 19:00] VITALS: BP 130/79
--- NOTE | 2021-02-28 19:16 | NUR ---
Gave report to ZOIE Mohan, transfer of care at this time.
--- NOTE | 2021-02-28 19:18 | NUR ---
RECEIVED REPORT FROM ZOIE YOUNG FOR CONTINUITY OF CARE
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
[2021-02-28] MEDS ORDERED: levETIRAcetam 1,000 MG in NACL 0.9% 100 ML IV ONE (19:55)
[2021-02-28] MEDS ORDERED: levETIRAcetam 100 MG/ML ORASYR ONE (20:12)
[2021-02-28 23:50] VITALS: BP 130/79
== END 2021-02-28 23:50 | disposition home or self-care (01) ==
LOC: MED 18:48
DX: G40.89 Other seizures (principal); F10.129 Alcohol abuse with intoxication, unspecified; Z88.0 Allergy status to penicillin; Y90.9 Presence of alcohol in blood, level not specified
CPT/HCPCS: 96365; 99284; J1953

== ENCOUNTER 2021-03-01 06:00 | Emergency (ER) | payer OTHER ==
[~2021-03-01] VITALS: Ht 170.2 cm; Wt 113.4 kg
[2021-03-01 06:00] VITALS: BP 128/78
[2021-03-01] MEDS ORDERED: HALOPERIDOL IM 5 MG/ML VIAL IVP ONE (06:10)
[2021-03-01] MEDS ORDERED: LORazepam 2 MG/ML VIAL IVP ONE (06:10)
[2021-03-01] MEDS ORDERED: diphenhydrAMINE 50 MG/ML VIAL IVP ONE (06:10)
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
--- NOTE | 2021-03-01 06:34 | NUR ---
NANCY SWAB AND BLOOD LABS WALKED TO LAB, HANDED TO POOJA KAY
[2021-03-01 06:39] LABS: BASOPHILS % (AUTO) 1.3 % (0.0-2.0); EOSINOPHILS # (AUTO) 0.2 K/uL (0-0.4); EOSINOPHILS % (AUTO) 5.3 % (0.0-4.0); HEMATOCRIT 41.9 % (36-52); HEMOGLOBIN 14.4 g/dL (12.0-18.0); LYMPHOCYTES % (AUTO) 28.1 % (20.5-51.1); MEAN CORPUSCULAR HEMOGLOBIN 34 pg (27-31); MEAN CORPUSCULAR HGB CONC 34 g/dL (33-37); MEAN CORPUSCULAR VOLUME 98.2 fL (80-94); MONOCYTES # (AUTO) 0.4 K/uL (0.8-1.0); MONOCYTES % (AUTO) 9.7 % (1.7-9.3); NEUTROPHILS % (AUTO) 55.6 % (42.2-75.2); PLATELET COUNT (AUTO) 115 K/uL (140-450); RED BLOOD CELL COUNT(AUTO) 4.26 MIL/uL (4.20-6.10); WHITE BLOOD COUNT (AUTO) 3.7 K/uL (4.8-10.8)
[2021-03-01 06:52] LABS: ALBUMIN 3.9 g/dL (3.4-5.0); ANION GAP 21.3 (8-16); CARBON DIOXIDE 20.7 mmol/L (21-32); CREATININE 0.9 mg/dL (0.6-1.3); TOTAL BILIRUBIN 1.2 mg/dL (0.0-1.0)
--- NOTE | 2021-03-01 07:06 | NUR ---
REPORT GIVEN TO ZOIE HAQUE FOR CHANGE OF SHIFT REPORT AT THIS TIME.
--- NOTE | 2021-03-01 07:06 | NUR ---
Report and continuation of care received from ZOIE Corbett.
--- NOTE | 2021-03-01 07:20 | NUR ---
Patient presents with both eyes closed in semi-fowlers position. Equal chest rise and fall; respirations even/unlabored. Bed locked in lowest position, seizure precautions and desk monitor remains in place.
[2021-03-01] MEDS ORDERED: IBUPROFEN 800 MG TAB ONE (08:00)
--- NOTE | 2021-03-01 08:25 | NUR ---
Patient presents with both eyes closed in semi-fowlers position. Equal chest rise and fall; respirations even/unlabored. Bed locked in lowest position, seizure precautions and potline monitor remains in place.
--- NOTE | 2021-03-01 09:36 | NUR ---
Patient awaken and notified of breakfast tray coming. Pt states he is hungry.
--- NOTE | 2021-03-01 09:49 | NUR ---
Breakfast meal tray provided at bedside. Patient awaken and is completing meal at this time. [place] juice provided per pt request. All pt needs met at this time.
--- NOTE | 2021-03-01 10:00 | NUR ---
Bus voucher provided per patient request.
--- NOTE | 2021-03-01 10:10 | NUR ---
Patient completed 90% of breakfast meal tray.
--- NOTE | 2021-03-01 10:12 | NUR ---
Patient resting in position of comfort. States "I feel a lot better." cigarette paper tester remains in place. Respirations even/unlabored. Bed locked in lowest position, seizure precautions in place.
--- NOTE | 2021-03-01 10:15 | NUR ---
Patient on telephone with father at this time.
[2021-03-01 10:19] VITALS: BP 111/65
== END 2021-03-01 10:19 | disposition home or self-care (01) ==
LOC: MED 06:00
DX: F95.9 Tic disorder, unspecified (principal); F10.129 Alcohol abuse with intoxication, unspecified; F17.210 Nicotine dependence, cigarettes, uncomplicated; Z88.0 Allergy status to penicillin; Y90.9 Presence of alcohol in blood, level not specified; Z20.822 Contact with and (suspected) exposure to COVID-19
CPT/HCPCS: 36415; 80053; 85025; 87426; 96374; 96375; 99285; G0482; J1200; J1630; J2060

== ENCOUNTER 2021-04-02 22:20 | Emergency (ER) | payer OTHER ==
[~2021-04-02] VITALS: Ht 172.7 cm; Wt 117.9 kg
[2021-04-02 22:25] VITALS: BP 136/92
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
[2021-04-02] MEDS ORDERED: NACL 0.9% 2,000 ML IV ONE (23:50)
[2021-04-02] MEDS ORDERED: LORazepam 2 MG/ML VIAL IVP ONE (23:50)
[2021-04-02] MEDS ORDERED: NACL 0.9% 1,000 ML IV ONE (23:50)
[2021-04-03 00:08] LABS: BASOPHILS # (AUTO) 0.1 K/uL (0.00-0.22); BASOPHILS % (AUTO) 1.2 % (0.0-2.0); EOSINOPHILS # (AUTO) 0.3 K/uL (0-0.4); EOSINOPHILS % (AUTO) 3.6 % (0.0-4.0); HEMATOCRIT 43.7 % (36-52); HEMOGLOBIN 15.1 g/dL (12.0-18.0); LYMPHOCYTES # (AUTO) 2.4 K/uL (2.0-11.5); LYMPHOCYTES % (AUTO) 33.7 % (20.5-51.1); MEAN CORPUSCULAR HEMOGLOBIN 34 pg (27-31); MEAN CORPUSCULAR HGB CONC 35 g/dL (33-37); MEAN CORPUSCULAR VOLUME 97.6 fL (80-94); MONOCYTES # (AUTO) 0.6 K/uL (0.8-1.0); MONOCYTES % (AUTO) 7.8 % (1.7-9.3); NEUTROPHILS # (AUTO) 3.8 K/uL (1.8-7.7); NEUTROPHILS % (AUTO) 53.7 % (42.2-75.2); PLATELET COUNT (AUTO) 144 K/uL (140-450); RED BLOOD CELL COUNT(AUTO) 4.48 MIL/uL (4.20-6.10); RED CELL DISTRIBUTION WIDTH 14.1 % (11.6-13.7); WHITE BLOOD COUNT (AUTO) 7.1 K/uL (4.8-10.8)
[2021-04-03 00:25] LABS: BARBITURATE, URINE NEGATIVE ng/ml (NEG <=200); BENZODIAZEPINE, URINE NEGATIVE ng/mL (NEG <=200); CANNABINOID, URINE NEGATIVE ng/mL (NEG <=50); COCAINE, URINE NEGATIVE ng/mL (NEG <=300); OPIATE, URINE NEGATIVE ng/mL (NEG <=2000); PHENCYCLIDINE SCREEN,URINE NEGATIVE ng/mL (NEG <=25)
[2021-04-03 01:04] LABS: ALBUMIN 3.8 g/dL (3.4-5.0); ANION GAP 22.4 (8-16); CARBON DIOXIDE 21.2 mmol/L (21-32); CREATININE 0.7 mg/dL (0.6-1.3); POTASSIUM 3.6 mmol/L (3.5-5.1); TOTAL BILIRUBIN 0.8 mg/dL (0.0-1.0)
--- NOTE | 2021-04-03 01:55 | NUR ---
Josef marroquin in [facility] - 04/03/21 at 0214 by TOMY RECEIVED A CALL FROM MANUEL, GEARMAN FOR PT'S INFORMATION
--- NOTE | 2021-04-03 05:15 | NUR ---
PATIENT AMBULATED TO RESTROOM AND BACK TO BED WITH STEADY GAIT.
--- NOTE | 2021-04-03 05:21 | NUR ---
Patient discharged with v/s stable. Written and verbal after care instructions given and explained. Patient verbalized understanding. Ambulatory with steady gait. All questions addressed prior to discharge. Advised to follow up with PMD. Addendum: 04/03/[address] [facility] CONFIRMED WITH PATIENT, SISTER WHO LIVES DOWN THE STREET WILL BE PICKING HIM UP. HE WILL WAIT IN THE LOBBY UNTIL SHE ARRIVES.
--- NOTE | 2021-04-05 20:57 | NUR ---
LATE ENTRY- NORMAL SALINE 0.9% DISCONTINUED AT 0300
== END 2021-04-03 05:21 | disposition home or self-care (01) ==
LOC: MED 22:20
DX: F10.129 Alcohol abuse with intoxication, unspecified (principal); I10 Essential (primary) hypertension; Z88.0 Allergy status to penicillin; Z79.899 Other long term (current) drug therapy
CPT/HCPCS: 36415; 80053; 80305; 85025; 96361; 96374; 99283; G0482; J2060; J7030

== ENCOUNTER 2021-04-13 20:34 | Emergency (ER) | payer OTHER ==
[~2021-04-13] VITALS: Ht 172.7 cm; Wt 90.7 kg
[2021-04-13 20:35] VITALS: BP 121/61
--- NOTE | 2021-04-13 20:35 | NUR ---
TO BED VIA WHEELCHAIR
--- NOTE | 2021-04-13 20:45 | NUR ---
SEE PT ASSESSMENT FOR PT INFORMATION.
--- NOTE | 2021-04-13 20:45 | NUR ---
ERMD AT BEDSIDE FOR MEDICAL EVALUATION.
--- NOTE | 2021-04-13 20:46 | NUR ---
PT RESTING IN BED, LOCKED AND IN LOWEST POSITION, HOB ELEVATED, SIDE RAIL X 2 FOR PTSAFETY , VSS. NO ACUTE DISTRESS NOTED.
[2021-04-13] MEDS ORDERED: FOLIC ACID 5 MG/ML SYR IM ONE (20:55)
[2021-04-13] MEDS ORDERED: NACL 0.9% 1,000 ML IV ONE ×2 (20:55→22:11)
[2021-04-13] MEDS ORDERED: THIAMINE 200 MG/2 ML VIAL IM ONE (20:55)
--- NOTE | 2021-04-13 20:55 | NUR ---
20G IV PLACED IN RT AC - BLOOD LABS COLLECTED AND WALKED TO LAB BY MEENA FAYE.
[2021-04-13] MEDS ORDERED: FOLIC ACID 1 MG TAB PO ONE (21:05)
[2021-04-13] MEDS ORDERED: FOLIC ACID 1 MG TAB ONE (21:09)
[2021-04-13 21:17] LABS: ANION GAP 25.4 (8-16); CARBON DIOXIDE 25.6 mmol/L (21-32); CREATININE 0.7 mg/dL (0.6-1.3)
[2021-04-13 21:23] LABS: MAGNESIUM 2.2 mg/dL (1.8-2.4)
--- NOTE | 2021-04-13 22:05 | NUR ---
PT AMBULATED TO RESTROOM W/ STEADY GAIT.
--- NOTE | 2021-04-13 22:07 | NUR ---
PT AMBULATED TO ER BED 12 W/ STEADY GAIT. PT RECONNECTED TO PULSE OX AND BP CUFF. VSS . PT RESTING IN BED, LOCKED AND IN LOWEST POSITION, HOB ELEVATED, SIDE RAIL X2 FOR PT SAFETY.
--- NOTE | 2021-04-13 22:11 | NUR ---
PER ERMD ADMINISTER 2ND NS BOLUS IVF AT THIS TIME.
--- NOTE | 2021-04-13 23:15 | NUR ---
PT RESTING W/ EYES CLOSED,VISIBLE RISE AND FALL OF CHEST. RR EVEN AND UNLABORE. BED IS LOCKED AND IN LOWEST POSITION, HOB ELEVATED, SIDE RAIL X 2 FOR PT SAFETY. VSS. NO ACUTE DISTRESS NOTED.
--- NOTE | 2021-04-14 01:17 | NUR ---
pt ambulated to restroom w/ steady gait.
--- NOTE | 2021-04-14 02:47 | NUR ---
Pt resting w/ eyes closed, arousable to verbal stimulation, rr even and unlabored. VSS. no acute distress noted.
--- NOTE | 2021-04-14 04:41 | NUR ---
pt resting w/ eyes closed, rr even and unlabored, vss. No acute distress noted. Bed is locked and in lowest position, hob elevated, side rail x 2 for pt safety.
[2021-04-14 07:04] VITALS: BP 103/65
== END 2021-04-14 07:00 | disposition home or self-care (01) ==
LOC: MED 20:34
DX: F10.129 Alcohol abuse with intoxication, unspecified (principal); E86.0 Dehydration; R25.2 Cramp and spasm; I10 Essential (primary) hypertension; Z88.0 Allergy status to penicillin; Y90.9 Presence of alcohol in blood, level not specified
CPT/HCPCS: 36415; 80048; 83735; 96360; 96361; 96372; 99285; G0482; J3411; J7030; J3490

== ENCOUNTER 2021-04-24 14:00 | Emergency (ER) | payer OTHER ==
[~2021-04-24] VITALS: Ht 177.8 cm; Wt 127.0 kg
--- NOTE | 2021-04-24 14:02 | NUR ---
Pt wc assisted to bed 4.
[2021-04-24 14:10] VITALS: BP 113/74
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
--- NOTE | 2021-04-24 14:22 | NUR ---
SEIZURE PRECAUTIONS IN PLACE AT THIS TIME
--- NOTE | 2021-04-24 14:30 | NUR ---
Patient being evaluated by Dr. Gotti at bedside.
[2021-04-24 15:09] LABS: BASOPHILS % (AUTO) 0.7 % (0.0-2.0); EOSINOPHILS # (AUTO) 0.1 K/uL (0-0.4); EOSINOPHILS % (AUTO) 2.9 % (0.0-4.0); HEMATOCRIT 36.4 % (36-52); HEMOGLOBIN 12.6 g/dL (12.0-18.0); LYMPHOCYTES # (AUTO) 1.5 K/uL (2.0-11.5); LYMPHOCYTES % (AUTO) 33.2 % (20.5-51.1); MEAN CORPUSCULAR HEMOGLOBIN 34 pg (27-31); MEAN CORPUSCULAR HGB CONC 35 g/dL (33-37); MEAN CORPUSCULAR VOLUME 97.7 fL (80-94); MONOCYTES # (AUTO) 0.3 K/uL (0.8-1.0); NEUTROPHILS # (AUTO) 2.6 K/uL (1.8-7.7); NEUTROPHILS % (AUTO) 56.2 % (42.2-75.2); PLATELET COUNT (AUTO) 63 K/uL (140-450); RED BLOOD CELL COUNT(AUTO) 3.73 MIL/uL (4.20-6.10); RED CELL DISTRIBUTION WIDTH 14.9 % (11.6-13.7); WHITE BLOOD COUNT (AUTO) 4.6 K/uL (4.8-10.8)
--- NOTE | 2021-04-24 15:10 | NUR ---
Dr. Villegas is evaluating the patient at bedside.
[2021-04-24] MEDS ORDERED: KETOROLAC 60 MG/2 ML VIAL IM ONE (15:15)
[2021-04-24 15:21] LABS: CARBON DIOXIDE 20.7 mmol/L (21-32); CREATININE 0.7 mg/dL (0.6-1.3); POTASSIUM 3.7 mmol/L (3.5-5.1)
[2021-04-24] MEDS ORDERED: IBUP-2213 PO (15:22)
[2021-04-24 15:34] VITALS: BP 110/70
[2021-04-24 15:35] LABS: ALBUMIN 3.5 g/dL (3.4-5.0); TOTAL BILIRUBIN 0.7 mg/dL (0.0-1.0)
== END 2021-04-24 15:34 | disposition home or self-care (01) ==
LOC: MED 14:00
DX: R56.9 Unspecified convulsions (principal); R51.9 Headache, unspecified; I10 Essential (primary) hypertension; Z98.890 Other specified postprocedural states; Z79.899 Other long term (current) drug therapy; Z88.0 Allergy status to penicillin
CPT/HCPCS: 36415; 80053; 85025; 93005; 96372; 99284; J1885

== ENCOUNTER 2021-04-24 22:19 | Emergency (ER) | payer OTHER ==
[~2021-04-24] VITALS: Ht 175.3 cm; Wt 104.3 kg
[~2021-04-24 22:19] MED LIST changes: +IBUP-2213 PO
--- NOTE | 2021-04-24 22:22 | NUR ---
PT GIFTY HERNANDEZ. TAKEN TO BED 12
[2021-04-24 22:27] VITALS: BP 102/72
[2021-04-24] MEDS ORDERED: ACETAMINOPHEN 325 MG TAB ONE (22:44)
[2021-04-24] MEDS ORDERED: LORazepam 0.5 MG TAB PO ONE (23:15)
[2021-04-24 23:48] VITALS: BP 98/68
--- NOTE | 2021-04-25 00:45 | NUR ---
d/c with VSS. d/c education given. opportunity to ask questions given and answered. no rx given.
== END 2021-04-25 00:45 | disposition home or self-care (01) ==
LOC: MED 22:19
DX: F10.20 Alcohol dependence, uncomplicated (principal); R56.9 Unspecified convulsions; R40.0 Somnolence; I10 Essential (primary) hypertension; Z79.899 Other long term (current) drug therapy; Z88.0 Allergy status to penicillin
CPT/HCPCS: 99283

== ENCOUNTER 2021-04-25 23:48 | Emergency (ER) | payer OTHER ==
[~2021-04-25] VITALS: Ht 175.3 cm; Wt 117.9 kg
[2021-04-25 23:54] VITALS: BP 132/88
[2021-04-26 04:56] VITALS: BP 115/76
== END 2021-04-26 04:56 | disposition home or self-care (01) ==
LOC: MED 23:48
DX: R56.9 Unspecified convulsions (principal); F10.129 Alcohol abuse with intoxication, unspecified; I10 Essential (primary) hypertension; Z88.0 Allergy status to penicillin; Y90.9 Presence of alcohol in blood, level not specified
CPT/HCPCS: 70450; 99285

== ENCOUNTER 2021-04-27 01:06 | Emergency (ER) | payer OTHER ==
[~2021-04-27] VITALS: Ht 177.8 cm; Wt 117.9 kg
[2021-04-27 01:10] VITALS: BP 151/95
[2021-04-27 07:05] VITALS: BP 143/88
== END 2021-04-27 07:05 | disposition home or self-care (01) ==
LOC: MED 01:06
DX: F10.129 Alcohol abuse with intoxication, unspecified (principal); R47.81 Slurred speech; R56.9 Unspecified convulsions; I10 Essential (primary) hypertension; Z88.0 Allergy status to penicillin; Z79.899 Other long term (current) drug therapy
CPT/HCPCS: 99283

== ENCOUNTER 2021-04-28 00:49 | Emergency (ER) | payer OTHER ==
[~2021-04-28] VITALS: Ht 175.3 cm; Wt 90.7 kg
[2021-04-28 00:51] VITALS: BP 143/73
[2021-04-28 01:42] VITALS: BP 143/73
== END 2021-04-28 01:42 | disposition home or self-care (01) ==
LOC: MED 00:49
DX: F10.129 Alcohol abuse with intoxication, unspecified (principal); I10 Essential (primary) hypertension; G40.909 Epilepsy, unspecified, not intractable, without status epilepticus; Z88.0 Allergy status to penicillin; Z79.899 Other long term (current) drug therapy; Z59.0 Homelessness
CPT/HCPCS: 99281

== ENCOUNTER 2021-05-30 08:55 | Emergency (ER) | payer OTHER ==
[~2021-05-30] VITALS: Ht 175.3 cm; Wt 90.7 kg
[2021-05-30 09:00] VITALS: BP 119/91
--- NOTE | 2021-05-30 09:13 | NUR ---
40/M presents to ED with ETOH. Patient appears highly intoxicated not answering questions appropriately, c/o nausea and "being hungry." Patient denies any pain, sob or chest pain, denies fever or chills.
--- NOTE | 2021-05-30 09:19 | NUR ---
Patient provided with meal pack.
--- NOTE | 2021-05-30 10:00 | NUR ---
Patient road tested, able to ambulate with steady gait, provided food, refused resources.
[2021-05-30 10:02] VITALS: BP 119/91
--- NOTE | 2021-05-30 10:03 | NUR ---
Per Dr. Villegas patient cleared to be discharged. Patient discharged with v/s stable. Written and verbal after care instructions given and explained. Patient verbalized understanding. Ambulatory with steady gait. All questions addressed prior to discharge. Advised to follow up with PMD.
== END 2021-05-30 10:00 | disposition home or self-care (01) ==
LOC: MED 08:55
DX: F10.129 Alcohol abuse with intoxication, unspecified (principal); I10 Essential (primary) hypertension; Z88.0 Allergy status to penicillin; Y90.9 Presence of alcohol in blood, level not specified
CPT/HCPCS: 99282

== ENCOUNTER 2021-06-09 00:07 | Emergency (ER) | payer OTHER ==
[~2021-06-09] VITALS: Ht 172.7 cm; Wt 108.9 kg
[2021-06-09 00:10] VITALS: BP 124/74
--- NOTE | 2021-06-09 00:13 | NUR ---
TO LOBBY A/W BED AMBULATORY
[2021-06-09 00:57] LABS: BASOPHILS % (AUTO) 0.4 % (0.0-2.0); EOSINOPHILS # (AUTO) 0.2 K/uL (0-0.4); HEMATOCRIT 42.2 % (36-52); HEMOGLOBIN 14.3 g/dL (12.0-18.0); LYMPHOCYTES # (AUTO) 2.5 K/uL (2.0-11.5); LYMPHOCYTES % (AUTO) 46.6 % (20.5-51.1); MEAN CORPUSCULAR HEMOGLOBIN 33 pg (27-31); MEAN CORPUSCULAR HGB CONC 34 g/dL (33-37); MEAN CORPUSCULAR VOLUME 98.3 fL (80-94); MONOCYTES # (AUTO) 0.5 K/uL (0.8-1.0); MONOCYTES % (AUTO) 9.9 % (1.7-9.3); NEUTROPHILS # (AUTO) 2.1 K/uL (1.8-7.7); NEUTROPHILS % (AUTO) 40.1 % (42.2-75.2); PLATELET COUNT (AUTO) 123 K/uL (140-450); RED BLOOD CELL COUNT(AUTO) 4.29 MIL/uL (4.20-6.10); RED CELL DISTRIBUTION WIDTH 15.9 % (11.6-13.7); WHITE BLOOD COUNT (AUTO) 5.3 K/uL (4.8-10.8)
[2021-06-09 01:09] LABS: ANION GAP 17.5 (8-16); CREATININE 0.7 mg/dL (0.6-1.3); POTASSIUM 3.5 mmol/L (3.5-5.1)
--- NOTE | 2021-06-09 03:38 | NUR ---
TO ER CHAIR Gregorio
[2021-06-09] MEDS ORDERED: KETOROLAC 60 MG/2 ML VIAL IM ONE (03:40)
[2021-06-09] MEDS ORDERED: IBUP-2213 PO (03:49)
[2021-06-09 04:21] VITALS: BP 122/64
--- NOTE | 2021-06-09 04:23 | NUR ---
d/c with VSS. d/c education given. opportunity to ask questions given and answered. rx of motrin given.
== END 2021-06-09 04:24 | disposition home or self-care (01) ==
LOC: MED 00:07
DX: R56.9 Unspecified convulsions (principal); R51.9 Headache, unspecified; I10 Essential (primary) hypertension; Z88.0 Allergy status to penicillin; Z79.899 Other long term (current) drug therapy; Z98.890 Other specified postprocedural states
CPT/HCPCS: 36415; 80048; 85025; 96372; 99283; J1885

== ENCOUNTER 2021-08-16 05:25 | Emergency (ER) | payer OTHER ==
[~2021-08-16] VITALS: Ht 175.3 cm; Wt 86.2 kg
[2021-08-16 05:31] VITALS: BP 136/88
--- NOTE | 2021-08-16 05:31 | NUR ---
PT BROUGHT TO BED 8 VIA DAVID SORIANO
--- NOTE | 2021-08-16 07:00 | NUR ---
Patient appears to be resting comfortably in bed. Vital Signs within normal limits. Respirations even and unlabored.
[2021-08-16 09:00] VITALS: BP 136/88
== END 2021-08-16 09:02 | disposition home or self-care (01) ==
LOC: MED 05:25
DX: F10.129 Alcohol abuse with intoxication, unspecified (principal); I10 Essential (primary) hypertension; F17.210 Nicotine dependence, cigarettes, uncomplicated; Z88.0 Allergy status to penicillin; Z79.899 Other long term (current) drug therapy; Z98.890 Other specified postprocedural states
CPT/HCPCS: 99281

== ENCOUNTER 2022-01-27 04:45 | Emergency (ER) | payer OTHER ==
[~2022-01-27] VITALS: Ht 177.8 cm; Wt 104.3 kg
[2022-01-27 04:45] VITALS: BP 125/80
--- NOTE | 2022-01-27 04:53 | NUR ---
PT BIBA TO BED 07.
--- NOTE | 2022-01-27 05:17 | NUR ---
PATIENT PRESENTS TO ED WITH SEIZURE. PT STATES "IT HAPPENED A FEW HOURS AGO." PT IS NOT AWARE OF THE DURATION. DENIES N/V/D; SKIN IS PINK/WARM/DRY; AAOX4 WITH EVEN AND STEADY GAIT; LUNGS CLEAR BL; HR EVEN AND REGULAR; PT DENIES ANY FEVER, CP, SOB, OR COUGH AT THIS TIME; PATIENT STATES PAIN OF 0/10 AT THIS TIME; VSS; PATIENT POSITIONED FOR COMFORT; HOB ELEVATED; BEDRAILS UP X2; BED DOWN. SEIZURE PRECAUTION IN PLACE. ER MD MADE AWARE OF PT STATUS. PMH: SEIZURE ALLERGIES: PCN MEDS: KEPPRA
--- NOTE | 2022-01-27 05:25 | NUR ---
OFFERED PT APPLE JUICE.
--- NOTE | 2022-01-27 06:10 | NUR ---
PT AMBULATED TO BATHROOM WITH STEADY GAIT.
--- NOTE | 2022-01-27 06:38 | NUR ---
PT VERBALIZED HE WANTS TO GO HOME. REQUESTED PT TO WAIT UNTIL ERMD IS AWARE.
--- NOTE | 2022-01-27 06:41 | NUR ---
DR. SIERRA AT BEDSIDE WITH PT.
--- NOTE | 2022-01-27 06:47 | NUR ---
Patient discharged with v/s stable. Written and verbal after care instructions given and explained. Patient verbalized understanding. Ambulatory with steady gait. All questions addressed prior to discharge. Advised to follow up with PMD. BUS PASS PROVIDED PER PT REQUEST. WRISTBANDS REMOVED. PT IS STABLE.
[2022-01-27 06:50] VITALS: BP 128/76
== END 2022-01-27 06:47 | disposition home or self-care (01) ==
LOC: MED 04:45
DX: F10.129 Alcohol abuse with intoxication, unspecified (principal); I10 Essential (primary) hypertension; Z88.0 Allergy status to penicillin; Y90.9 Presence of alcohol in blood, level not specified
CPT/HCPCS: 99283

== ENCOUNTER 2022-01-29 03:41 | Emergency (ER) | payer OTHER ==
[~2022-01-29] VITALS: Ht 175.3 cm; Wt 85.7 kg
[2022-01-29 03:44] VITALS: BP 118/78
--- NOTE | 2022-01-29 03:53 | NUR ---
PT AMBULATED TO BED 05.
--- NOTE | 2022-01-29 03:55 | NUR ---
Dr. Ley at bedside to exam patient.
[2022-01-29] MEDS ORDERED: THIAMINE 200 MG/2 ML VIAL IM ONE (04:00)
[2022-01-29] MEDS ORDERED: FOLIC ACID 5 MG/ML SYR IM ONE (04:00)
[2022-01-29] MEDS ORDERED: levETIRAcetam 1,000 MG in NACL 0.9% 100 ML IV ONE (04:00)
[2022-01-29] MEDS ORDERED: NACL 0.9% 1,000 ML IV ONE (04:00)
[2022-01-29] MEDS ORDERED: levETIRAcetam 100 MG/ML VIAL IV ONE (04:10)
[2022-01-29 04:13] LABS: BASOPHILS # (AUTO) 0.1 K/uL (0.00-0.22); BASOPHILS % (AUTO) 0.9 % (0.0-2.0); EOSINOPHILS # (AUTO) 0.5 K/uL (0-0.4); HEMATOCRIT 44.8 % (36-52); LYMPHOCYTES # (AUTO) 3.4 K/uL (2.0-11.5); LYMPHOCYTES % (AUTO) 44.7 % (20.5-51.1); MEAN CORPUSCULAR HEMOGLOBIN 31 pg (27-31); MEAN CORPUSCULAR HGB CONC 34 g/dL (33-37); MEAN CORPUSCULAR VOLUME 92.4 fL (80-94); MONOCYTES # (AUTO) 0.5 K/uL (0.8-1.0); NEUTROPHILS # (AUTO) 3.2 K/uL (1.8-7.7); NEUTROPHILS % (AUTO) 41.4 % (42.2-75.2); PLATELET COUNT (AUTO) 150 K/uL (140-450); RED BLOOD CELL COUNT(AUTO) 4.85 MIL/uL (4.20-6.10); RED CELL DISTRIBUTION WIDTH 14.8 % (11.6-13.7); WHITE BLOOD COUNT (AUTO) 7.7 K/uL (4.8-10.8)
[2022-01-29 04:36] VITALS: BP 118/78
[2022-01-29 04:39] LABS: ALBUMIN 4.2 g/dL (3.4-5.0); ANION GAP 14.7 (8-16); CARBON DIOXIDE 27.9 mmol/L (21-32); POTASSIUM 3.6 mmol/L (3.5-5.1); TOTAL BILIRUBIN 0.6 mg/dL (0.0-1.0)
[2022-01-29] MEDS ORDERED: LEVE750T3 PO (05:56)
--- NOTE | 2022-01-29 06:05 | NUR ---
Patient discharged with v/s stable. Written and verbal after care instructions given and explained. Patient alert, oriented and verbalized understanding of instructions. Ambulatory with steady gait. All questions addressed prior to discharge. ID band removed. Patient advised to follow up with PMD. Rx of KEEMELY given. Patient educated on indication of medication including possible reaction and side effects. Opportunity to ask questions provided and answered.
[2022-01-29] MEDS ORDERED: levETIRAcetam 500 MG in NACL 0.9% 100 ML IV SCH (09:00)
== END 2022-01-29 06:05 | disposition home or self-care (01) ==
LOC: MED 03:41
DX: F10.10 Alcohol abuse, uncomplicated (principal); I10 Essential (primary) hypertension; Z91.14 Patient's other noncompliance with medication regimen; Z88.0 Allergy status to penicillin; Z79.899 Other long term (current) drug therapy; Z98.890 Other specified postprocedural states
CPT/HCPCS: 36415; 80053; 85025; 96365; 96372; 99284; G0482; J1953; J3411; J3490; J7030

== ENCOUNTER 2022-05-22 01:25 | Emergency (ER) | payer OTHER ==
[~2022-05-22] VITALS: Ht 175.3 cm; Wt 85.7 kg
[~2022-05-22 01:25] MED LIST changes: +LEVE750T3 PO
[2022-05-22 01:32] VITALS: BP 132/77
--- NOTE | 2022-05-22 02:46 | NUR ---
Dr. Vizcaino examining patient.
[2022-05-22 02:55] VITALS: BP 132/77
== END 2022-05-22 02:55 | disposition home or self-care (01) ==
LOC: MED 01:25
DX: G40.909 Epilepsy, unspecified, not intractable, without status epilepticus (principal); F10.10 Alcohol abuse, uncomplicated; I10 Essential (primary) hypertension; Z79.899 Other long term (current) drug therapy; Z88.0 Allergy status to penicillin; Z98.890 Other specified postprocedural states
CPT/HCPCS: 99281

== ENCOUNTER 2022-06-13 01:06 | Emergency (ER) | payer OTHER ==
[~2022-06-13] VITALS: Ht 175.3 cm; Wt 123.8 kg
[2022-06-13 01:29] VITALS: BP 129/82
[2022-06-13] MEDS ORDERED: NACL 0.9% 1,000 ML IV ONE (01:40)
[2022-06-13] MEDS ORDERED: levETIRAcetam 1,000 MG in NACL 0.9% 100 ML IV ONE (01:40)
--- NOTE | 2022-06-13 02:05 | NUR ---
C/O OF SEIZURE, UNABLE TO PROVIDE MORE INFORMATION. A/O X3 DUE TO TBI
[2022-06-13] MEDS ORDERED: levETIRAcetam 100 MG/ML VIAL IV ONE (02:16)
[2022-06-13 02:43] LABS: BASOPHILS # (AUTO) 0.1 K/uL (0.00-0.22); EOSINOPHILS # (AUTO) 0.1 K/uL (0-0.4); HEMATOCRIT 42.2 % (36-52); HEMOGLOBIN 14.3 g/dL (12.0-18.0); LYMPHOCYTES % (AUTO) 41.3 % (20.5-51.1); MEAN CORPUSCULAR HEMOGLOBIN 32 pg (27-31); MEAN CORPUSCULAR HGB CONC 34 g/dL (33-37); MEAN CORPUSCULAR VOLUME 94.8 fL (80-94); MONOCYTES # (AUTO) 0.9 K/uL (0.8-1.0); MONOCYTES % (AUTO) 12.8 % (1.7-9.3); NEUTROPHILS # (AUTO) 3.1 K/uL (1.8-7.7); NEUTROPHILS % (AUTO) 42.9 % (42.2-75.2); PLATELET COUNT (AUTO) 179 K/uL (140-450); RED BLOOD CELL COUNT(AUTO) 4.45 MIL/uL (4.20-6.10); RED CELL DISTRIBUTION WIDTH 15.5 % (11.6-13.7); WHITE BLOOD COUNT (AUTO) 7.2 K/uL (4.8-10.8)
[2022-06-13 02:57] LABS: ALBUMIN 3.4 g/dL (3.4-5.0); ANION GAP 16.6 (8-16); CARBON DIOXIDE 20.9 mmol/L (21-32); CREATININE 0.9 mg/dL (0.6-1.3); POTASSIUM 3.5 mmol/L (3.5-5.1); TOTAL BILIRUBIN 0.2 mg/dL (0.0-1.0)
--- NOTE | 2022-06-13 03:00 | NUR ---
RESTING QUIETLY WITH EYES CLOSED. RESPIRATIONS REGULAR AND UNLABORED
[2022-06-13 04:50] VITALS: BP 134/78
== END 2022-06-13 04:50 | disposition home or self-care (01) ==
LOC: MED 01:06
DX: G40.909 Epilepsy, unspecified, not intractable, without status epilepticus (principal); F10.129 Alcohol abuse with intoxication, unspecified; Y90.9 Presence of alcohol in blood, level not specified; I10 Essential (primary) hypertension; Z88.0 Allergy status to penicillin
CPT/HCPCS: 36415; 80053; 85025; 96365; 99284; G0482; J1953; J7030

== ENCOUNTER 2022-06-16 23:25 | Emergency (ER) | payer OTHER ==
[~2022-06-16] VITALS: Ht 170.2 cm; Wt 122.5 kg
[2022-06-16 23:30] VITALS: BP 144/80
--- NOTE | 2022-06-16 23:33 | NUR ---
TO LOBBY A/W BED AMBULATORY
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
--- NOTE | 2022-06-17 03:49 | NUR ---
PT AMBUALTED TO BED NO 9
--- NOTE | 2022-06-17 04:49 | NUR ---
V/S STABLE, ASLEEP, IN NO DISTRESS. WILL AWAIT FOR MD MATUTE.
--- NOTE | 2022-06-17 04:57 | NUR ---
ER MD AT BEDSIDE TO EXAMINE PT. WILL AWAIT FOR ORDERS.
[2022-06-17] MEDS ORDERED: KETOROLAC 60 MG/2 ML VIAL IM ONE (05:05)
[2022-06-17] MEDS ORDERED: IBUP-2213 PO (05:07)
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
--- NOTE | 2022-06-17 05:53 | NUR ---
NO ADVERSE REACTION NOTED. DISCHARGE AND F/U INSTRUCTIONS PROVIDED TO PT AND VERBALIZED UNDERSTANDING. PT WALKED OUT OF THE ER WITH STEADY/STABLE GAIT. PT IS STABLE FOR DISCHARGED.
[2022-06-17 05:56] VITALS: BP 122/76
== END 2022-06-17 05:52 | disposition home or self-care (01) ==
LOC: MED 23:25
DX: F10.129 Alcohol abuse with intoxication, unspecified (principal); R51.9 Headache, unspecified; Y90.9 Presence of alcohol in blood, level not specified; I10 Essential (primary) hypertension; Z88.0 Allergy status to penicillin; Z98.890 Other specified postprocedural states
CPT/HCPCS: 96372; 99283; J1885

== ENCOUNTER 2022-06-18 21:56 | Emergency (ER) | payer OTHER ==
--- NOTE | 2022-06-18 22:53 | NUR ---
CALLED AT 6000, NO RESPONSE
--- NOTE | 2022-06-18 23:35 | NUR ---
CALLED, NO RESPONSE
--- NOTE | 2022-06-19 00:25 | NUR ---
PATIENT LEFT WITHOUT BEING SEEN BY DR. ROWLAND. NO FURTHER CARE PROVIDED FOR PATIENT.
--- NOTE | 2022-06-19 00:25 | NUR ---
CALLED, NO RESPONSE
== END 2022-06-18 22:52 | disposition left against medical advice (07) ==
LOC: MED 21:56
DX: F10.129 Alcohol abuse with intoxication, unspecified (principal); Z53.21 Procedure and treatment not carried out due to patient leaving prior to being seen by health care provider

== ENCOUNTER 2022-12-11 02:10 | Emergency (ER) | payer OTHER ==
[~2022-12-11] VITALS: Ht 175.3 cm; Wt 116.6 kg
[2022-12-11 02:15] VITALS: BP 128/92
--- NOTE | 2022-12-11 02:18 | NUR ---
to lobby a/w bed ambulatory
--- NOTE | 2022-12-11 04:00 | NUR ---
seen and examined by GALINA
== END 2022-12-11 04:25 | disposition home or self-care (01) ==
LOC: MED 02:10
DX: R56.9 Unspecified convulsions (principal); I10 Essential (primary) hypertension; Z76.0 Encounter for issue of repeat prescription; Z79.899 Other long term (current) drug therapy
CPT/HCPCS: 99281

== ENCOUNTER 2023-02-22 03:00 | Emergency (ER) | payer OTHER ==
[~2023-02-22] VITALS: Ht 170.2 cm; Wt 118.4 kg
--- NOTE | 2023-02-22 03:07 | NUR ---
PT TAKEN TO BED 9
[2023-02-22 03:08] VITALS: BP 142/102
[2023-02-22] MEDS ORDERED: LORazepam 2 MG/ML VIAL IM ONE (03:20)
--- NOTE | 2023-02-22 03:20 | NUR ---
Dr. Vizcaino examining patient.
[2023-02-22] MEDS: LORazepam 1 MG TAB PO ONE ×2 (03:39→03:48)
[2023-02-22 04:42] VITALS: BP 136/92
== END 2023-02-22 04:42 | disposition home or self-care (01) ==
LOC: MED 03:00
DX: F41.9 Anxiety disorder, unspecified (principal); R25.1 Tremor, unspecified; I10 Essential (primary) hypertension; Z79.899 Other long term (current) drug therapy; Z88.0 Allergy status to penicillin; Z98.890 Other specified postprocedural states
CPT/HCPCS: 96372; 99283; J2060

== ENCOUNTER 2023-04-30 03:25 | Emergency (ER) | payer OTHER ==
[~2023-04-30] VITALS: Ht 177.8 cm; Wt 117.9 kg
[2023-04-30 03:25] VITALS: BP 117/84
--- NOTE | 2023-04-30 03:25 | NUR ---
TO BED AMBULATORY
--- NOTE | 2023-04-30 03:44 | NUR ---
SET UP TO MONITOR BS
--- NOTE | 2023-04-30 03:45 | NUR ---
Patient stated, "I just got discharged from [facility], my parents are in [place], so I tookma bus here." Patient resting in bed, A/Ox4, chest rise and fall symmetrical, no c/o pain or s/s of distress, on monitor. Addendum: 04/30/23 at 0509 by [id number] Patient stated, "I just got discharged from [facility], my parents are in [place], so I tookma bus here." Patient resting in bed, A/Ox4, chest rise and fall symmetrical, no c/o pain or s/s of distress, on monitor, seizure pads in place.
--- NOTE | 2023-04-30 05:00 | NUR ---
Patient resting in bed, A/Ox4, chest rise and fall symmetrical, no c/o pain or s/s of distress, on monitor. Addendum: 04/30/23 at 0508 by [id number] Patient resting in bed, A/Ox4, chest rise and fall symmetrical, no c/o pain or s/s of distress, on monitor, seizure pads in place.
[2023-04-30 05:10] VITALS: BP 112/74
== END 2023-04-30 05:10 | disposition home or self-care (01) ==
LOC: MED 03:25
DX: R56.9 Unspecified convulsions (principal); F10.90 Alcohol use, unspecified, uncomplicated; I10 Essential (primary) hypertension; Z88.0 Allergy status to penicillin; Z79.899 Other long term (current) drug therapy; Y90.9 Presence of alcohol in blood, level not specified
CPT/HCPCS: 99281

== ENCOUNTER 2023-05-04 02:29 | Emergency (ER) | payer OTHER ==
[~2023-05-04] VITALS: Ht 177.8 cm; Wt 122.5 kg
[2023-05-04 02:43] VITALS: BP 124/80; PULSE 89; RESP 16; TEMP 97.7; O2SAT 95
--- NOTE | 2023-05-04 02:50 | NUR ---
PT TO BED
[2023-05-04 03:10] VITALS: O2SAT 96
--- NOTE | 2023-05-04 03:17 | NUR ---
42YO M BIB SELF C/O HEADACHE. PT PRESENTS WITH SLURRED SPEECH PATTERNS AND AMBULATES WITH ASSIST. PT STATES HE HAD 2 BEERS YESTERDAY. PLACED PT ON 2 L/PM O2 VIA NC FOR O2 SATS DROPPING TO 84%. ON BEDSIDE MONITOR. SPO2 96% VIA 2L NC. PENICILLINS HX BRAIN SERGERY 8YRS AGO
--- NOTE | 2023-05-04 04:32 | NUR ---
PT IS SLEEPING WITH HOB ELEVATED. RESP EVEN AND UNLABORED. ON BEDSIDE CARCIAC MONTIOR.
--- NOTE | 2023-05-04 04:47 | NUR ---
DR JIMENEZ AT BEDSIDE
--- NOTE | 2023-05-04 05:35 | NUR ---
PT GOING FOR CT
[2023-05-04 05:38] VITALS: O2SAT 96
--- NOTE | 2023-05-04 05:44 | NUR ---
PT BACK FROM CT
--- NOTE | 2023-05-04 06:21 | NUR ---
PENDING CT RESULTS
[2023-05-04 07:48] VITALS: BP 143/79; PULSE 74; RESP 17; O2SAT 98
--- NOTE | 2023-05-04 07:49 | NUR ---
Patient discharged with v/s stable. Written and verbal after care instructions given and explained. Patient verbalized understanding. Ambulatory with to car. All questions addressed prior to discharge. Advised to follow up with PMD.
== END 2023-05-04 07:40 | disposition home or self-care (01) ==
LOC: MED 02:29
DX: R51.9 Headache, unspecified (principal); F10.129 Alcohol abuse with intoxication, unspecified; I10 Essential (primary) hypertension; Z88.0 Allergy status to penicillin; Z79.899 Other long term (current) drug therapy; Y90.9 Presence of alcohol in blood, level not specified
CPT/HCPCS: 70450; 99285

== ENCOUNTER 2023-08-04 00:20 | Emergency (ER) | payer OTHER ==
[~2023-08-04] VITALS: Ht 177.8 cm; Wt 120.2 kg
[2023-08-04 00:40] VITALS: BP 129/84; PULSE 89; RESP 17; TEMP 97.6; O2SAT 96
[2023-08-04 03:39] VITALS: BP 134/83; PULSE 84; RESP 19; O2SAT 99
[2023-08-04] MEDS ORDERED: KETOROLAC 60 MG/2 ML VIAL IM ONE (04:25)
[2023-08-04] MEDS ORDERED: IBUP-2213 PO (04:42)
== END 2023-08-04 05:31 | disposition home or self-care (01) ==
LOC: MED 00:20
DX: R51.9 Headache, unspecified (principal); I10 Essential (primary) hypertension; Z79.899 Other long term (current) drug therapy
CPT/HCPCS: 96372; 99283; J1885

== ENCOUNTER 2023-08-06 23:09 | Emergency (ER) | payer OTHER ==
[~2023-08-06] VITALS: Ht 167.6 cm; Wt 74.8 kg
[2023-08-06 23:10] VITALS: BP 146/90; PULSE 93; RESP 18; TEMP 97.7; O2SAT 97
[2023-08-07] MEDS ORDERED: levETIRAcetam 500 MG TAB PO ONE (01:40)
[2023-08-07 02:45] VITALS: BP 142/84; PULSE 91; RESP 16; TEMP 97.7; O2SAT 97
== END 2023-08-07 02:45 | disposition home or self-care (01) ==
LOC: MED 23:09
DX: F10.129 Alcohol abuse with intoxication, unspecified (principal); G40.909 Epilepsy, unspecified, not intractable, without status epilepticus; I10 Essential (primary) hypertension; Z88.0 Allergy status to penicillin; Z79.899 Other long term (current) drug therapy; Z98.890 Other specified postprocedural states
CPT/HCPCS: 99283

== ENCOUNTER 2023-08-08 23:01 | Emergency (ER) | payer OTHER ==
[~2023-08-08] VITALS: Ht 167.6 cm; Wt 90.7 kg
[2023-08-08 23:05] VITALS: BP 118/90; PULSE 115; RESP 17; TEMP 97.6; O2SAT 96
== END 2023-08-09 02:56 | disposition home or self-care (01) ==
LOC: MED 23:01
DX: G40.909 Epilepsy, unspecified, not intractable, without status epilepticus (principal); F10.90 Alcohol use, unspecified, uncomplicated; I10 Essential (primary) hypertension; Z98.890 Other specified postprocedural states; Z79.899 Other long term (current) drug therapy; Z79.1 Long term (current) use of non-steroidal anti-inflammatories (NSAID); Z88.0 Allergy status to penicillin; Y90.9 Presence of alcohol in blood, level not specified
CPT/HCPCS: 99281

== ENCOUNTER 2023-08-20 01:05 | Emergency (ER) | payer OTHER ==
[~2023-08-20] VITALS: Ht 177.8 cm; Wt 122.5 kg
[2023-08-20 01:17] VITALS: BP 121/80; PULSE 84; RESP 20; TEMP 97.4; O2SAT 100
[2023-08-20 01:31] VITALS: O2SAT 99
[2023-08-20 02:03] LABS: BASOPHILS # (AUTO) 0.1 K/uL (0.00-0.22); BASOPHILS % (AUTO) 1.1 % (0.0-2.0); EOSINOPHILS # (AUTO) 0.2 K/uL (0-0.4); EOSINOPHILS % (AUTO) 3.6 % (0.0-4.0); HEMATOCRIT 41.7 % (36-52); HEMOGLOBIN 14.2 g/dL (12.0-18.0); LYMPHOCYTES # (AUTO) 2.2 K/uL (2.0-11.5); LYMPHOCYTES % (AUTO) 48.6 % (20.5-51.1); MEAN CORPUSCULAR HEMOGLOBIN 33 pg (27-31); MEAN CORPUSCULAR HGB CONC 34 g/dL (33-37); MEAN CORPUSCULAR VOLUME 98.3 fL (80-94); MONOCYTES # (AUTO) 0.7 K/uL (0.8-1.0); MONOCYTES % (AUTO) 14.4 % (1.7-9.3); NEUTROPHILS # (AUTO) 1.5 K/uL (1.8-7.7); NEUTROPHILS % (AUTO) 32.3 % (42.2-75.2); PLATELET COUNT (AUTO) 91 K/uL (140-450); RED BLOOD CELL COUNT(AUTO) 4.24 MIL/uL (4.20-6.10); RED CELL DISTRIBUTION WIDTH 15.3 % (11.6-13.7); WHITE BLOOD COUNT (AUTO) 4.6 K/uL (4.8-10.8)
[2023-08-20 02:20] LABS: ALBUMIN 3.6 g/dL (3.4-5.0); ANION GAP 14.5 (8-16); CALCIUM 8.2 mg/dL (8.5-10.1); CARBON DIOXIDE 26.7 mmol/L (21-32); CREATININE 0.8 mg/dL (0.6-1.3); POTASSIUM 3.2 mmol/L (3.5-5.1); TOTAL BILIRUBIN 0.6 mg/dL (0.0-1.0); TOTAL PROTEIN, SERUM 6.7 g/dL (6.4-8.2)
[2023-08-20] MEDS ORDERED: POTASSIUM CHLORIDE 10 MEQ TABER PO ONE (02:25)
[2023-08-20 03:32] VITALS: O2SAT 99
[2023-08-20 06:37] VITALS: BP 115/72; PULSE 59; RESP 11; O2SAT 98
== END 2023-08-20 06:39 | disposition home or self-care (01) ==
LOC: MED 01:05
DX: F10.129 Alcohol abuse with intoxication, unspecified (principal); E87.1 Hypo-osmolality and hyponatremia; D69.6 Thrombocytopenia, unspecified; E87.6 Hypokalemia; R74.01 Elevation of levels of liver transaminase levels; I10 Essential (primary) hypertension; Z88.0 Allergy status to penicillin; Y90.9 Presence of alcohol in blood, level not specified
CPT/HCPCS: 36415; 70450; 80053; 85025; 99284; G0482

== ENCOUNTER 2023-08-31 05:05 | Emergency (ER) | payer OTHER ==
[~2023-08-31] VITALS: Ht 177.8 cm; Wt 81.6 kg
[2023-08-31 05:20] VITALS: BP 127/73; PULSE 90; RESP 17; TEMP 97.8; O2SAT 97
[2023-08-31] MEDS ORDERED: KETOROLAC 60 MG/2 ML VIAL IM ONE (05:50)
[2023-08-31] MEDS ORDERED: IBUP-2213 PO (05:58)
[2023-08-31 06:51] VITALS: BP 127/73; PULSE 90; RESP 17; TEMP 97.8; O2SAT 97
== END 2023-08-31 06:51 | disposition home or self-care (01) ==
LOC: MED 05:05
DX: R51.9 Headache, unspecified (principal); F10.129 Alcohol abuse with intoxication, unspecified; I10 Essential (primary) hypertension; Z86.69 Personal history of other diseases of the nervous system and sense organs; Z79.899 Other long term (current) drug therapy; Z79.1 Long term (current) use of non-steroidal anti-inflammatories (NSAID); Z88.0 Allergy status to penicillin; Y90.9 Presence of alcohol in blood, level not specified
CPT/HCPCS: 96372; 99283; J1885

== ENCOUNTER 2023-09-02 22:29 | Emergency (ER) | payer OTHER ==
[~2023-09-02] VITALS: Ht 177.8 cm; Wt 90.7 kg
[2023-09-02 22:42] VITALS: BP 161/104; PULSE 77; RESP 20; TEMP 97.4; O2SAT 100
[2023-09-03 01:37] LABS: BASOPHILS # (AUTO) 0.1 K/uL (0.00-0.22); BASOPHILS % (AUTO) 1.2 % (0.0-2.0); EOSINOPHILS # (AUTO) 0.3 K/uL (0-0.4); EOSINOPHILS % (AUTO) 6.8 % (0.0-4.0); HEMATOCRIT 45.1 % (36-52); HEMOGLOBIN 15.4 g/dL (12.0-18.0); LYMPHOCYTES # (AUTO) 2.3 K/uL (2.0-11.5); LYMPHOCYTES % (AUTO) 46.2 % (20.5-51.1); MEAN CORPUSCULAR HEMOGLOBIN 34 pg (27-31); MEAN CORPUSCULAR HGB CONC 34 g/dL (33-37); MEAN CORPUSCULAR VOLUME 99.6 fL (80-94); MONOCYTES # (AUTO) 0.3 K/uL (0.8-1.0); MONOCYTES % (AUTO) 5.8 % (1.7-9.3); PLATELET COUNT (AUTO) 101 K/uL (140-450); RED BLOOD CELL COUNT(AUTO) 4.53 MIL/uL (4.20-6.10); RED CELL DISTRIBUTION WIDTH 16.1 % (11.6-13.7)
[2023-09-03 01:56] LABS: ALBUMIN 3.8 g/dL (3.4-5.0); ANION GAP 20.3 (8-16); CALCIUM 7.8 mg/dL (8.5-10.1); CREATININE 0.6 mg/dL (0.6-1.3); POTASSIUM 3.3 mmol/L (3.5-5.1); TOTAL BILIRUBIN 0.6 mg/dL (0.0-1.0); TOTAL PROTEIN, SERUM 7.2 g/dL (6.4-8.2)
[2023-09-03] MEDS ORDERED: NACL 0.9% 1,000 ML IV ONE (02:05)
[2023-09-03] MEDS ORDERED: levETIRAcetam 1,000 MG in NACL 0.9% 100 ML IV ONE (02:05)
[2023-09-03 02:06] VITALS: O2SAT 99
[2023-09-03] MEDS ORDERED: levETIRAcetam 100 MG/ML VIAL IV ONE (02:43)
[2023-09-03] MEDS ORDERED: levETIRAcetam 100 MG/ML ORASYR ONE (02:52)
[2023-09-03 03:49] VITALS: O2SAT 99
[2023-09-03 05:55] VITALS: O2SAT 98
[2023-09-03 08:30] VITALS: BP 130/82; PULSE 92; RESP 14; TEMP 97.5; O2SAT 98
== END 2023-09-03 08:30 | disposition home or self-care (01) ==
LOC: MED 22:29
DX: F10.20 Alcohol dependence, uncomplicated (principal); G40.909 Epilepsy, unspecified, not intractable, without status epilepticus; I10 Essential (primary) hypertension; Z79.1 Long term (current) use of non-steroidal anti-inflammatories (NSAID); Z79.899 Other long term (current) drug therapy; Z88.0 Allergy status to penicillin; Y90.8 Blood alcohol level of 240 mg/100 ml or more
CPT/HCPCS: 36415; 80053; 85025; 96365; 99285; G0482; J1953; J7030

== ENCOUNTER 2024-01-03 13:28 | Emergency (ER) | payer OTHER ==
[~2024-01-03] VITALS: Ht 177.8 cm; Wt 110.2 kg
[2024-01-03 13:36] VITALS: BP 128/82; PULSE 98; RESP 18; TEMP 98.8; O2SAT 97
[2024-01-03] MEDS: MORPHINE SULFATE 4 MG/ML SYR IVP ONE (14:24)
[2024-01-03] MEDS ORDERED: ACET-10509 PO (15:17)
[2024-01-03] MEDS: LORazepam 2 MG/ML VIAL IVP ONE (15:38)
[2024-01-03 16:45] VITALS: BP 118/79; PULSE 71; RESP 10; TEMP 98.8; O2SAT 96
[2024-01-03 17:15] LABS: AMPHETAMINE, URINE NEGATIVE ng/ml (NEG <=1000); BARBITURATE, URINE NEGATIVE ng/ml (NEG <=200); BENZODIAZEPINE, URINE POSITIVE ng/mL (NEG <=200); CANNABINOID, URINE POSITIVE ng/mL (NEG <=50); COCAINE, URINE NEGATIVE ng/mL (NEG <=300); OPIATE, URINE POSITIVE ng/mL (NEG <=2000); PHENCYCLIDINE SCREEN,URINE NEGATIVE ng/mL (NEG <=25)
== END 2024-01-03 16:48 | disposition home or self-care (01) ==
LOC: MED 13:28
DX: S09.90XA Unspecified injury of head, initial encounter (principal); I10 Essential (primary) hypertension; Z86.69 Personal history of other diseases of the nervous system and sense organs; Z79.899 Other long term (current) drug therapy; Z88.0 Allergy status to penicillin; Y04.0XXA Assault by unarmed brawl or fight, initial encounter; Y92.89 Other specified places as the place of occurrence of the external cause; Y93.89 Activity, other specified; Y99.8 Other external cause status
CPT/HCPCS: 70450; 80305; 93005; 96374; 96375; 99285; J2060; J2270

== ENCOUNTER 2024-04-07 22:46 | Emergency (ER) | payer OTHER ==
[~2024-04-07] VITALS: Ht 175.3 cm; Wt 103.4 kg
[~2024-04-07 22:46] MED LIST changes: +ACET-10509 PO
[2024-04-07 23:16] VITALS: BP 114/79; PULSE 78; RESP 18; TEMP 97.3; O2SAT 98
[2024-04-08 01:42] LABS: BASOPHILS # (AUTO) 0.1 K/uL (0.00-0.22); BASOPHILS % (AUTO) 1.1 % (0.0-2.0); EOSINOPHILS # (AUTO) 0.3 K/uL (0-0.4); EOSINOPHILS % (AUTO) 4.1 % (0.0-4.0); HEMATOCRIT 45.6 % (36-52); HEMOGLOBIN 15.6 g/dL (12.0-18.0); LYMPHOCYTES # (AUTO) 2.5 K/uL (2.0-11.5); LYMPHOCYTES % (AUTO) 32.1 % (20.5-51.1); MEAN CORPUSCULAR HEMOGLOBIN 34 pg (27-31); MEAN CORPUSCULAR HGB CONC 34 g/dL (33-37); MEAN CORPUSCULAR VOLUME 99.1 fL (80-94); MONOCYTES # (AUTO) 0.9 K/uL (0.8-1.0); MONOCYTES % (AUTO) 10.8 % (1.7-9.3); NEUTROPHILS # (AUTO) 4.1 K/uL (1.8-7.7); NEUTROPHILS % (AUTO) 51.9 % (42.2-75.2); PLATELET COUNT (AUTO) 119 K/uL (140-450); RED CELL DISTRIBUTION WIDTH 15.7 % (11.6-13.7); WHITE BLOOD COUNT (AUTO) 7.9 K/uL (4.8-10.8)
[2024-04-08 02:03] LABS: ANION GAP 13.2 (8-16); CALCIUM 8.6 mg/dL (8.5-10.1); CARBON DIOXIDE 25.6 mmol/L (21-32); CREATININE 0.8 mg/dL (0.6-1.3); POTASSIUM 3.8 mmol/L (3.5-5.1)
== END 2024-04-08 00:36 | disposition left against medical advice (07) ==
LOC: MED 22:46
DX: R56.9 Unspecified convulsions (principal); Z53.21 Procedure and treatment not carried out due to patient leaving prior to being seen by health care provider
CPT/HCPCS: 36415; 80048; 85025

== ENCOUNTER 2024-04-17 02:32 | Emergency (ER) | payer OTHER ==
[~2024-04-17] VITALS: Ht 175.3 cm; Wt 103.4 kg
[2024-04-17 02:39] VITALS: BP 121/63; PULSE 62; RESP 18; TEMP 98.3; O2SAT 97
== END 2024-04-17 06:40 | disposition left against medical advice (07) ==
LOC: MED 02:32
DX: F10.129 Alcohol abuse with intoxication, unspecified (principal); I10 Essential (primary) hypertension; Z79.899 Other long term (current) drug therapy; Y90.9 Presence of alcohol in blood, level not specified
CPT/HCPCS: 99281

== ENCOUNTER 2024-05-13 06:26 | Emergency (ER) | payer OTHER ==
[~2024-05-13] VITALS: Ht 167.6 cm; Wt 79.4 kg
[2024-05-13 06:34] VITALS: BP 159/102; PULSE 96; RESP 14; TEMP 97.3; O2SAT 99
[2024-05-13 07:07] VITALS: BP 124/86; PULSE 82; RESP 20; TEMP 98; O2SAT 100
[2024-05-13] MEDS: levETIRAcetam 500 MG TAB PO ONE (07:07)
== END 2024-05-13 07:02 | disposition home or self-care (01) ==
LOC: MED 06:26
DX: G40.909 Epilepsy, unspecified, not intractable, without status epilepticus (principal); F10.10 Alcohol abuse, uncomplicated; I10 Essential (primary) hypertension; Z79.899 Other long term (current) drug therapy; Z88.0 Allergy status to penicillin; Y90.9 Presence of alcohol in blood, level not specified
CPT/HCPCS: 99283

== ENCOUNTER 2024-05-14 03:28 | Emergency (ER) | payer OTHER ==
[~2024-05-14] VITALS: Ht 175.3 cm; Wt 100.7 kg
[2024-05-14 03:53] VITALS: BP 113/73; PULSE 71; RESP 16; TEMP 97.9; O2SAT 100
== END 2024-05-14 06:48 | disposition left against medical advice (07) ==
LOC: MED 03:28
DX: Z53.21 Procedure and treatment not carried out due to patient leaving prior to being seen by health care provider (principal); R51.9 Headache, unspecified; R56.9 Unspecified convulsions

== ENCOUNTER 2024-07-10 09:34 | Emergency (ER) | payer OTHER ==
[~2024-07-10] VITALS: Ht 167.6 cm; Wt 95.7 kg
[~2024-07-10 09:34] MED LIST changes: -ACET-10509 PO; +ACET500T99 PO
[2024-07-10 09:51] VITALS: BP 137/96; PULSE 144; RESP 20; TEMP 98.8; O2SAT 99
--- NOTE | 2024-07-10 10:03 | NUR ---
PT WHEELCHAIR ASSISTED TO BED 12
--- NOTE | 2024-07-10 10:20 | NUR ---
43 Y/O MALE PT. PRESENT TO THE ED C/O ETOH WITHDRAW AND SEIZURES. NO ACTIVE SZ ACTIVITY NOTED ON EXAM AT PRESENT TIME. EAR FLAP BINDER APPLIED BILATERAL SIDE RAILS PADDED FOR SAFETY. PLAN OF CARE ONGOING. BLOOD DRAWN AND SENT TO MAIN LAB.
[2024-07-10] MEDS: LORazepam 1 MG TAB PO ONE (10:34)
[2024-07-10 10:38] LABS: BASOPHILS # (AUTO) 0.1 K/uL (0.00-0.22); BASOPHILS % (AUTO) 0.6 % (0.0-2.0); EOSINOPHILS # (AUTO) 0.1 K/uL (0-0.4); EOSINOPHILS % (AUTO) 0.7 % (0.0-4.0); HEMATOCRIT 51.2 % (36-52); HEMOGLOBIN 17.6 g/dL (12.0-18.0); LYMPHOCYTES # (AUTO) 1.9 K/uL (2.0-11.5); LYMPHOCYTES % (AUTO) 11.4 % (20.5-51.1); MEAN CORPUSCULAR HEMOGLOBIN 34 pg (27-31); MEAN CORPUSCULAR HGB CONC 34 g/dL (33-37); MEAN CORPUSCULAR VOLUME 99.3 fL (80-94); MONOCYTES % (AUTO) 6.4 % (1.7-9.3); NEUTROPHILS # (AUTO) 13.3 K/uL (1.8-7.7); NEUTROPHILS % (AUTO) 80.9 % (42.2-75.2); PLATELET COUNT (AUTO) 146 K/uL (140-450); RED BLOOD CELL COUNT(AUTO) 5.16 MIL/uL (4.20-6.10); RED CELL DISTRIBUTION WIDTH 13.5 % (11.6-13.7); WHITE BLOOD COUNT (AUTO) 16.4 K/uL (4.8-10.8)
[2024-07-10 10:53] LABS: ALBUMIN 4.7 g/dL (3.4-5.0); ANION GAP 27.8 (8-16); CALCIUM 9.7 mg/dL (8.5-10.1); CARBON DIOXIDE 17.2 mmol/L (21-32); TOTAL PROTEIN, SERUM 8.5 g/dL (6.4-8.2)
[2024-07-10] MEDS: NACL 0.9% 2,000 ML IV ONE (11:10)
--- NOTE | 2024-07-10 11:17 | NUR ---
PT. WITH TACHYCARDIA HR= 128 DENIES CP. 2L OF 0.9NS BOLUS INFUSING.
--- NOTE | 2024-07-10 12:17 | NUR ---
2L 0.9 NS BOLUS INFUSED. PT. HR= 116. NO SIGNS OF TREMORS NOTED AT PRESENT TIME. PT. RESPIRATIONS EVEN UNLABORED.
[2024-07-10 13:58] LABS: APPEARANCE,URINE CLEAR (CLEAR); BILIRUBIN,URINE NEGATIVE (NEGATIVE); BLOOD, URINE NEGATIVE (NEGATIVE); COLOR,URINE YELLOW (YELLOW); LEUKOCYTE ESTERASE ,URINE NEGATIVE (NEGATIVE); NITRITE, URINE NEGATIVE (NEGATIVE); PROTEIN,URINE NEGATIVE (NEGATIVE); UGLUCOSE NEGATIVE (NEGATIVE)
[2024-07-10 14:12] LABS: AMPHETAMINE, URINE POSITIVE ng/ml (NEG <=1000); BARBITURATE, URINE NEGATIVE ng/ml (NEG <=200); BENZODIAZEPINE, URINE NEGATIVE ng/mL (NEG <=200)
[2024-07-10 14:13] LABS: CANNABINOID, URINE POSITIVE ng/mL (NEG <=50); COCAINE, URINE NEGATIVE ng/mL (NEG <=300); OPIATE, URINE NEGATIVE ng/mL (NEG <=2000); PHENCYCLIDINE SCREEN,URINE NEGATIVE ng/mL (NEG <=25)
[2024-07-10 14:32] VITALS: BP 134/79; PULSE 102; RESP 19; TEMP 98; O2SAT 95
--- NOTE | 2024-07-10 14:33 | NUR ---
PT. D/C HOME AMBULATING IN STEADY GAIT. NO SIGNS OF SEIZURE ACTIVITY NOTED ON EXAM.
--- NOTE | 2024-07-10 14:36 | NUR ---
Patient discharged with v/s stable. Written and verbal after care instructions given and explained to parent/guardian. Parent/Guardian verbalized understanding. Ambulatorysteady gait. All questions addressed prior to discharge. Advised to follow up with PMD.
== END 2024-07-10 11:50 | disposition home or self-care (01) ==
LOC: MED 09:34
DX: F15.10 Other stimulant abuse, uncomplicated (principal); F12.10 Cannabis abuse, uncomplicated; E86.0 Dehydration; I10 Essential (primary) hypertension; Z71.6 Tobacco abuse counseling; Z86.69 Personal history of other diseases of the nervous system and sense organs; Z79.899 Other long term (current) drug therapy; Z88.0 Allergy status to penicillin
CPT/HCPCS: 36415; 80053; 80305; 81003; 85025; 93005; 96360; 99284; J7030

== ENCOUNTER 2024-08-27 00:31 | Emergency (ER) | payer OTHER ==
[~2024-08-27] VITALS: Ht 167.6 cm; Wt 74.8 kg
[2024-08-27 00:42] VITALS: BP 137/91; PULSE 108; RESP 14; TEMP 98.6; O2SAT 98
[2024-08-27 04:14] VITALS: BP 96/56; PULSE 88; RESP 12; TEMP 98.5; O2SAT 98
== END 2024-08-27 04:14 | disposition home or self-care (01) ==
LOC: MED 00:31
DX: R56.9 Unspecified convulsions (principal); I10 Essential (primary) hypertension; Z98.890 Other specified postprocedural states; Z79.899 Other long term (current) drug therapy; Z88.0 Allergy status to penicillin
CPT/HCPCS: 99281

== ENCOUNTER 2024-08-31 00:40 | Emergency (ER) | payer OTHER ==
[~2024-08-31] VITALS: Ht 170.2 cm; Wt 95.3 kg
[2024-08-31 00:49] VITALS: BP 111/64; PULSE 82; RESP 16; TEMP 98.4; O2SAT 95
[2024-08-31 01:11] VITALS: BP 151/104; PULSE 82; RESP 16; TEMP 96.5; O2SAT 97
[2024-08-31] MEDS: IBUPROFEN 600 MG TAB PO ONE (01:54)
[2024-08-31] MEDS: levETIRAcetam 500 MG TAB PO ONE (01:54)
[2024-08-31 05:30] VITALS: BP 131/82; PULSE 85; RESP 17; TEMP 97.7; O2SAT 100
== END 2024-08-31 05:30 | disposition home or self-care (01) ==
LOC: MED 00:40
DX: R51.9 Headache, unspecified (principal); Z86.69 Personal history of other diseases of the nervous system and sense organs; Z79.899 Other long term (current) drug therapy; Z88.0 Allergy status to penicillin
CPT/HCPCS: 99283